=== PATIENT | female | born 2000 | race Caucasian/White ===

== ENCOUNTER 2020-10-19 07:55 | Emergency (ER) | payer OTHER, SELFPAY ==
[2020-10-19 08:33] VITALS: BP 136/69; PULSE 68; RESP 18; TEMP 37.1; O2SAT 99; BMI 38.2
[2020-10-19 08:35] LABS: Glucose Urine UA NEG (NEG); Leukocyte Esterase Urine 3+ (NEG); Nitrite Urine NEG (NEG); PH 7.5 (5.0-8.0); UACC Culture Trigger YES; Urine Blood NEG (NEG); Urine Ketones NEG (NEG); Urine Protein NEG (NEG-TRACE)
[2020-10-19 08:37] LABS: Appearance Urine HAZY; Color Urine YELLOW; UPreg QC Valid YES; Urine Pregnancy NEGATIVE (NEGATIVE)
[2020-10-19 08:44] LABS: RBC Urine 0-2 /HPF (0); Squamous Epithelial Cell Urine 2+ /LPF
--- NOTE | 2020-10-19 09:11 | ED_ITS ---
HPI - Female Genitourinary General Chief complaint: Urogenital-Female Stated complaint: ques uti Source: patient Mode of arrival: ambulatory Limitations: no limitations History of Present Illness HPI Narrative: Patient presents to ED for dysuria, vaginal discharge, and vaginal itching. Patient denies any abdominal pain, fever, chills, or flank pain. Related Data Previous Rx's Medication Instructions Recorded cephalexin 500 mg PO QID #28 cap 10/19/20 doxycycline hyclate 100 mg PO BID #14 cap 10/19/20 metronidazole 500 mg PO Q12H #14 tab 10/19/20 Allergies Allergy/AdvReac Type Severity Reaction Status Date / Time No Known Allergies Allergy Unverified 02/16/20 16:41 [No Known Allergies*] Review of Systems Review of Systems: Yes all other systems are reviewed and are negative Constitutional: Constitutional: Reports as per HPI and Reports no additional constitutional complaints Eyes: Eyes: Reports as per HPI and Reports no additional eye complaints ENT: Reports system reviewed and no additional complaints, except as documented and Reports as per HPI Cardiovascular: Cardiovascular: Reports as per HPI and Reports no additional cardiovascular complaints Respiratory: Respiratory: Reports as per HPI and Reports no additional respiratory complaints Gastrointestinal: Gastrointestinal: Reports as per HPI and Reports no additional gastrointestinal complaints Genitourinary: Genitourinary: Reports no additional female genitourinary complaints, Reports as per HPI, Reports dysuria, Denies flank pain and Reports vaginal discharge Musculoskeletal: Musculoskeletal: Reports no additional musculoskeletal complaints and Reports as per HPI Neurologic: Reports system reviewed and no additional complaints, except as documented and Reports as per HPI Psychiatric: Psychiatric: Reports no additional psychiatric complaints and Reports as per HPI [facility] Social History Social History Advance Directives: Yes Advance Directives Information Provided: No Advance Directives on File: No Patient : No Physical Exam Vital Signs: Vital Signs: Last Vital Signs Temp 98.8 F 10/19/20 08:33 Pulse 68 10/19/20 08:33 Resp 18 10/19/20 08:33 BP 136/69 10/19/20 08:33 Pulse Ox 99 10/19/20 08:33 Body Mass Index 38.2 Const: General: cooperative, healthy appearing, comfortable, no acute distress, well developed, alert and awake Orientation/consciousness: patient oriented x3 HENMT: Head: Yes normal to inspection, Yes No palpable skull fracture present, Yes normocephalic and Yes atraumatic Eyes: General: appearance normal, both eyes and all related structures Neck: Neck: Yes normal visual inspection, Yes full ROM, Yes no lymphadenopathy, Yes no meningeal signs, Yes trachea midline, Yes supple and No tender Chest: Chest palpation & inspection: normal inspection of the chest and normal palpation of entire chest wall Resp: Effort & Inspection: normal respiratory effort and able to speak in complete sentences Auscultation: clear to auscultation bilaterally Cardio: Jugular venous distension: no JVD Heart sounds: S1 normal heart sound present and S2 normal heart sound present GI: Inspection: Yes normal to inspection and No abdominal wall ecchymosis Palpation (GI): Soft to palpation, not firm, nontender, no guarding and not rigid : General: No CVA tenderness and Yes no CVA tenderness External Female Exam: normal external appearance and normal appearance of the urethra Speculum Exam - Vagina: abnormal vaginal discharge (White frothy cheesy discharge) white and frothy Back/Spine/Pelvis: Back: no CVA tenderness, No CVA tenderness and No back tenderness Skin: General skin exam: no rashes or lesions noted and elasticity normal Neuro: General: patient oriented x3, no meningeal signs and CN's II-XI intact bilaterally Cranial nerves: Yes CN's II-XII intact bilaterally Extrem: General: Yes normal to inspection and Yes full ROM Psych: Appearance: grossly normal, well kempt and not disheveled Course Course Course Narrative: UA shows UTI. Will do pelvic exam with female tube test technician developed below. Reevaluation(s) Reevaluation #1: Patient will be discharged with Keflex, Flagyl, doxycycline. Patient agree with empiric treatment for STI. Patient given 1 dose for Diflucan in case he sees. MDM - Female Genitourinary MDM Narrative Medical decision making narrative: Vaginitis Lab Data Labs: Lab Results 10/19/20 10/19/20 10/19/20 Range/Units 08:19 08:19 08:19 Urine Color YELLOW Urine Appearance HAZY Urine pH 7.5 (5.0-8.0) Ur Specific [place] 1.020 (1.005-1.025) Urine Protein NEG (NEG-TRACE) MG/DL Urine Glucose (UA) NEG (NEG) MG/DL Urine Ketones NEG (NEG) MG/DL Urine Blood NEG (NEG) Urine Nitrite NEG (NEG) Ur Leukocyte Esterase 3+ H (NEG) Urine RBC 0-2 (0) /HPF Urine WBC 10-14 H (0-4) /HPF Ur Squamous Epith Cells 2+ /LPF Urine Bacteria NONE /LPF Urine Test NEGATIVE (NEGATIVE) Chlam trachomat DNA PCR NOT DETECTED (Not Detect.) N.gonorrhoeae DNA (PCR) NOT DETECTED (Not Detect.) Discharge Plan Discharge Clinical Impression: Urinary tract infection, Vaginitis Patient Disposition: Home, Self-Care Instructions: Bacterial Vaginosis (ED), Urinary Tract Infection in Women (ED) Additional Instructions: Return to the ED for any abdominal pain, flank pain, fever, chills, nausea, vomiting, or any other concerning symptoms. You were given Diflucan for possible yeast infection. Will be discharged with Keflex antibiotics and metronidazole for vaginitis. Please follow-up with PCP Prescriptions: New cephalexin 500 mg capsule 500 mg PO QID Qty: 28 RF: 0 metronidazole 500 mg tablet 500 mg PO Q12H Qty: 14 RF: 0 doxycycline hyclate 100 mg capsule 100 mg PO BID Qty: 14 RF: 0 Stand Alone Forms: Work/School Release Interventions: ED Discharge Assessment Last Done: 10/19/20 10:49 Discharge Date/Time: 10/19/20 10:49 Print Language: Polish
--- NOTE | 2020-10-19 10:02 | PC.NURSE ---
ASSISTED FLOWER SAEED WITH PELVIC EXAM. BV AND TRICH SWABS SENT TO LAB.
[2020-10-19] MEDS: cefTRIAXone sodium 500 MG, Lidocaine HCl 1 % MPF 1 ML IM (10:18)
[2020-10-19] MEDS: Fluconazole 150 MG TABLET PO (10:18)
[2020-10-19 13:08] LABS: CT PCR NOT DETECTED (Not Detect.); NG PCR NOT DETECTED (Not Detect.)
[2020-10-20 12:33] LABS: BV Int Neg Control Negative (Negative); BV Int Pos Control Positive (Positive)
== END 2020-10-19 10:49 | disposition home or self-care (01) ==
PROVIDERS: Physician Assistant; Emergency Provider Internal Medicine
DX: N39.0 Urinary tract infection, site not specified (principal); N76.0 Acute vaginitis; Z79.899 Other long term (current) drug therapy
CPT/HCPCS: 81001; 81003; 81025; 87086; 87480; 87491; 87510; 87591; 87660; 96372; 99283; J0696

== ENCOUNTER 2020-12-05 10:08 | Emergency (ER) | payer OTHER, SELFPAY ==
--- NOTE | ~2020-12-05 | US_ITS ---
EXAMINATION: US ABDOMEN LIMITED CLINICAL INFORMATION: Right upper quadrant pain. COMPARISON: None TECHNIQUE: Real-time imaging of the right upper quadrant abdominal viscera. FINDINGS: PANCREAS: Not well visualized due to bowel gas LIVER: Normal. The liver is normal in size. The liver contour is normal. Parenchymal echogenicity is normal. No focal hepatic lesion. There is no intrahepatic biliary duct dilatation seen. GALLBLADDER: Normal. The gallbladder is physiologically distended without evidence of stones, sludge, polyps, wall thickening or pericholecystic fluid. COMMON BILE DUCT: Normal in caliber measuring 0.3 cm in diameter. RIGHT KIDNEY: Normal. No hydronephrosis. No renal calculi or focal parenchymal lesions. The kidney measures 11.5 cm in maximum dimension. FREE FLUID: None. US/US abdomen limited IMPRESSION: Limited visualization of the pancreas otherwise unremarkable exam.
[2020-12-05 10:12] VITALS: BP 111/68; PULSE 67; RESP 19; TEMP 35.6; O2SAT 99; BMI 39.6
[2020-12-05 10:35] VITALS: BP 101/48; PULSE 79; RESP 17; O2SAT 98
--- NOTE | 2020-12-05 10:49 | ED_ITS ---
HPI - General Adult General Chief complaint: General Medical Stated complaint: abd pain Time Seen by Provider: 12/05/20 10:26 Source: patient Mode of arrival: ambulatory Limitations: no limitations History of Present Illness HPI narrative: lower abdominal pain for one week, no dysuria, LMP 7/3 normal, no diarrhea, nausea no vomiting, pain is worse with eating Onset (ago): week(s) Location: abdomen Radiation: non-radiation Quality: burning and other (cramping) Pain Consistency: intermittent Exacerbating factors: eating Related Data Previous Rx's Medication Instructions Recorded cephalexin 500 mg PO QID #28 cap 10/19/20 doxycycline hyclate 100 mg PO BID #14 cap 10/19/20 metronidazole 500 mg PO Q12H #14 tab 10/19/20 pantoprazole [Protonix] 40 mg PO DAILY #20 tab 12/05/20 Allergies Allergy/AdvReac Type Severity Reaction Status Date / Time No Known Allergies Allergy Unverified 02/16/20 16:41 [No Known Allergies*] Review of Systems Constitutional: Constitutional: Reports no additional constitutional complaints Eyes: Eyes: Reports no additional eye complaints ENT: Denies dizziness Cardiovascular: Cardiovascular: Reports no additional cardiovascular complaints Respiratory: Respiratory: Reports as per HPI Gastrointestinal: Gastrointestinal: Reports no additional gastrointestinal complaints Genitourinary: Genitourinary: Reports no additional female genitourinary complaints Musculoskeletal: Musculoskeletal: Reports no additional musculoskeletal complaints Integumentary/Breasts: Skin/Breast: Denies rash Neurologic: Reports system reviewed and no additional complaints, except as documented, Denies dizziness and Denies Sensory deficit (Neuro) Psychiatric: Psychiatric: Denies anxiety [facility] Past Medical History Medical History Asthma Social History Social History Alcohol intake: never Patient Tobacco Use Status: Never used Tobacco Use of substances other than those prescribed or required for medical reasons: No Advance Directives: Yes Advance Directives Information Provided: No Advance Directives on File: No Patient : No Physical Exam Vital Signs: Vital Signs: Last Vital Signs Temp 96.0 F L 12/05/20 10:12 Pulse 60 12/05/20 12:25 Resp 14 12/05/20 12:25 BP 96/57 L 12/05/20 12:25 Pulse Ox 100 12/05/20 12:25 Body Mass Index 39.6 Const: General: healthy appearing Nutritional Appearance: obese Orientation/consciousness: oriented to person and patient oriented x3 Limitations: no limitations HENMT: Head: Yes normal to inspection Ears: external ears normal General nose exam: Normal external nose present Mouth: Normal oral and palatal mucosa present and oropharynx normal Throat: Yes posterior oropharynx normal Eyes: General: appearance normal, both eyes and all related structures Neck: Other: supple Neck: Yes normal visual inspection Chest: Chest palpation & inspection: normal inspection of the chest Resp: Auscultation: clear to auscultation bilaterally Cardio: Jugular venous distension: no JVD Rate: regular rate Rhythm: regular rhythm Heart sounds: S1 normal heart sound present and S2 normal heart sound present GI: Other: right upper quadrant pain Inspection: Yes normal to inspection Palpation (GI): Soft to palpation and No hepatosplenomegaly present Auscultation: normal bowel sounds : General: Yes no CVA tenderness Back/Spine/Pelvis: Back: no CVA tenderness Skin: General skin exam: no rashes or lesions noted Neuro: General: oriented to person and patient oriented x3 Cranial nerves: Yes CN's II-XII intact bilaterally Motor exam (neuro): 5/5 motor strength present throughout Sensory Exam: No Sensory deficit (Neuro) Extrem: General: Yes normal to inspection Psych: Appearance: grossly normal Course Reevaluation(s) Reevaluation #1: patient resting comfortably US negative, labs normal will dc on protonix for gastritis Time: 12:58 Medical Decision Making Lab Data Result diagrams: 12/05/20 11:06 12/05/20 11:06 Labs: Lab Results 12/05/20 12/05/20 12/05/20 Range/Units 11:06 11:06 12:25 WBC 5.0 (4.8-10.8) X10*3/uL RBC 4.05 L (4.20-5.50) X10*6/uL Hgb 13.0 (12.0-16.0) g/dl Hct 38.0 (37-47) % MCV 93.8 (80-98) fL MCH 32.1 (27.0-33.0) pg MCHC 34.2 (31.0-35.0) g/dl RDW 11.6 (11.0-16.0) % Plt Count 235 (160-400) X10*3/uL MPV 9.6 (9.4-12.3) fL Immature Gran % (Auto) 0.0 (0.0-0.4) % Neut % (Auto) 40.9 L (45-73) % Lymph % (Auto) 51.9 H (20-40) % Alfalfa % (Auto) 5.2 (2-11) % Eos % (Auto) 1.6 (0-4) % Baso % (Auto) 0.4 (0-2) % Lymph # (Auto) 2.6 (1.2-4.9) X10*3/uL [place] # (Auto) 0.3 (0.1-1.2) X10*3/uL Eos # (Auto) 0.1 (0.0-0.4) X10*3/uL Baso # (Auto) 0.0 (0.0-0.2) X10*3/uL Abs Immat Gran (auto) 0.00 (0.00-0.03) X10*3/uL Absolute Neuts (auto) 2.0 (2.0-8.3) X10*3/uL Absolute Nucleated RBC 0.000 (0.0-0.012) X10*3/uL Nucleated RBC % (auto) 0.0 (0.0-0.2) /100WBC Sodium 139 (135-145) mmol/L Potassium 4.4 (3.3-5.1) mmol/L Chloride 106 (96-108) mmol/L Carbon Dioxide 24 (22-29) mmol/L Anion Gap 13 (12-20) BUN 9 (9-16) mg/dL Creatinine 0.69 (0.5-1.4) mg/dL Estim Creat Clear Calc 129.5 Estimated GFR > 60 Random Glucose 80 (60-115) mg/dL Calcium 8.9 (8.4-10.2) mg/dL Total Bilirubin 0.5 (0.0-1.0) mg/dL Direct Bilirubin 0.2 (0.0-0.5) mg/dL AST 24 (5-31) U/L ALT 25 (0-31) U/L Alkaline Phosphatase 61 (39-117) U/L Total Protein 7.3 (6.5-8.0) g/dL Albumin 3.9 (3.5-5.0) g/dL Lipase 21 (8-78) U/L Urine Color YELLOW Urine Appearance HAZY Urine pH 7.5 (5.0-8.0) Ur Specific [place] 1.015 (1.005-1.025) Urine Protein NEG (NEG-TRACE) MG/DL Urine Glucose (UA) NEG (NEG) MG/DL Urine Ketones NEG (NEG) MG/DL Urine Blood NEG (NEG) Urine Nitrite NEG (NEG) Ur Leukocyte Esterase NEG (NEG) Urine Test (NEGATIVE) 12/05/20 Range/Units 12:25 WBC (4.8-10.8) X10*3/uL RBC (4.20-5.50) X10*6/uL Hgb (12.0-16.0) g/dl Hct (37-47) % MCV (80-98) fL MCH (27.0-33.0) pg MCHC (31.0-35.0) g/dl RDW (11.0-16.0) % Plt Count (160-400) X10*3/uL MPV (9.4-12.3) fL Immature Gran % (Auto) (0.0-0.4) % Neut % (Auto) (45-73) % Lymph % (Auto) (20-40) % [place]alfa % (Auto) (2-11) % Eos % (Auto) (0-4) % Baso % (Auto) (0-2) % Lymph # (Auto) (1.2-4.9) X10*3/uL [place] # (Auto) (0.1-1.2) X10*3/uL Eos # (Auto) (0.0-0.4) X10*3/uL Baso # (Auto) (0.0-0.2) X10*3/uL Abs Immat Gran (auto) (0.00-0.03) X10*3/uL Absolute Neuts (auto) (2.0-8.3) X10*3/uL Absolute Nucleated RBC (0.0-0.012) X10*3/uL Nucleated RBC % (auto) (0.0-0.2) /100WBC Sodium (135-145) mmol/L Potassium (3.3-5.1) mmol/L Chloride (96-108) mmol/L Carbon Dioxide (22-29) mmol/L Anion Gap (12-20) BUN (9-16) mg/dL Creatinine (0.5-1.4) mg/dL Estim Creat Clear Calc Estimated GFR Random Glucose (60-115) mg/dL Calcium (8.4-10.2) mg/dL Total Bilirubin (0.0-1.0) mg/dL Direct Bilirubin (0.0-0.5) mg/dL AST (5-31) U/L ALT (0-31) U/L Alkaline Phosphatase (39-117) U/L Total Protein (6.5-8.0) g/dL Albumin (3.5-5.0) g/dL Lipase (8-78) U/L Urine Color Urine Appearance Urine pH (5.0-8.0) Ur Specific [place] (1.005-1.025) Urine Protein (NEG-TRACE) MG/DL Urine Glucose (UA) (NEG) MG/DL Urine Ketones (NEG) MG/DL Urine Blood (NEG) Urine Nitrite (NEG) Ur Leukocyte Esterase (NEG) Urine Test NEGATIVE (NEGATIVE) Imaging Data US - abdomen: Radiologist's impression: MPRESSION: Limited visualization of the pancreas otherwise unremarkable exam. Discharge Plan Discharge Clinical Impression: Gastritis Qualifiers: Gastritis type: unspecified gastritis Chronicity: acute Gastritis bleeding: without bleeding Qualified Code(s): K29.00 - Acute gastritis without bleeding Patient Disposition: Home, Self-Care Instructions: Gastritis (ED) Prescriptions: New pantoprazole [Protonix] 40 mg tablet,delayed release (DR/EC) 40 mg PO DAILY Qty: 20 RF: 0 No Action cephalexin 500 mg capsule 500 mg PO QID Qty: 28 RF: 0 metronidazole 500 mg tablet 500 mg PO Q12H Qty: 14 RF: 0 doxycycline hyclate 100 mg capsule 100 mg PO BID Qty: 14 RF: 0 Referrals: Isabel Rodgers MD [Primary Care Provider] - 1 week
[2020-12-05 11:18] LABS: MANUAL DIFF FLAG NO
[2020-12-05 11:44] LABS: Basophils Percent Auto 0.4 % (0-2); Eosinophils Absolute Auto 0.1 X10*3/uL (0.0-0.4); Eosinophils Percent Auto 1.6 % (0-4); Lymphocytes Absolute Auto 2.6 X10*3/uL (1.2-4.9); Lymphocytes Percent Auto 51.9 % (20-40); Mean Corpuscular HGB Conc 34.2 g/dl (31.0-35.0); Mean Corpuscular Hemoglobin 32.1 pg (27.0-33.0); Mean Corpuscular Volume 93.8 fL (80-98); Mean Platelet Volume 9.6 fL (9.4-12.3); Monocytes Absolute Auto 0.3 X10*3/uL (0.1-1.2); Monocytes Percent Auto 5.2 % (2-11); Neutrophils Percent Auto 40.9 % (45-73); Platelet Count 235 X10*3/uL (160-400); Red Blood Count 4.05 X10*6/uL (4.20-5.50); Red Cell Distribution Width 11.6 % (11.0-16.0)
[2020-12-05 11:59] LABS: Alanine Aminotransferase 25 U/L (0-31); Albumin Level 3.9 g/dL (3.5-5.0); Alkaline Phosphatase 61 U/L (39-117); Anion Gap 13 (12-20); Aspartate Amino Transferase 24 U/L (5-31); Bilirubin Direct 0.2 mg/dL (0.0-0.5); Bilirubin Total 0.5 mg/dL (0.0-1.0); Blood Urea Nitrogen 9 mg/dL (9-16); Calcium 8.9 mg/dL (8.4-10.2); Carbon Dioxide 24 mmol/L (22-29); Chloride 106 mmol/L (96-108); Creatinine Clr Calc Pharmacy 129.5; Estimated Glomerular Filt Rate > 60; Glucose Random 80 mg/dL (60-115); Lipase 21 U/L (8-78); Potassium 4.4 mmol/L (3.3-5.1); Sodium 139 mmol/L (135-145); Total Protein 7.3 g/dL (6.5-8.0)
--- NOTE | 2020-12-05 12:15 | PC.NURSE ---
Patient is ambulatory to the bathroom and back without difficulty. Urine specimen obtained and sent to the lab. Pt states stomach is a little better and feels more like acid
[2020-12-05] MEDS: Pantoprazole Sodium 40 MG/10 ML VIAL IVPUSH (12:18)
[2020-12-05 12:25] VITALS: BP 96/57; PULSE 60; RESP 14; O2SAT 100
[2020-12-05 12:53] LABS: Glucose Urine UA NEG (NEG); Leukocyte Esterase Urine NEG (NEG); Nitrite Urine NEG (NEG); PH 7.5 (5.0-8.0); Specific Gravity - Urine 1.015 (1.005-1.025); Urine Blood NEG (NEG); Urine Ketones NEG (NEG); Urine Protein NEG (NEG-TRACE)
[2020-12-05 12:54] LABS: Appearance Urine HAZY; Color Urine YELLOW
[2020-12-05 12:55] LABS: UPreg QC Valid YES; Urine Pregnancy NEGATIVE (NEGATIVE)
== END 2020-12-05 13:20 | disposition home or self-care (01) ==
PROVIDERS: Emergency Provider Emergency Medicine; PCP Internal Medicine
DX: K29.00 Acute gastritis without bleeding (principal)
CPT/HCPCS: 36415; 76705; 80048; 80076; 81003; 81025; 83690; 85025; 96374; 99284

== ENCOUNTER 2020-12-25 01:26 | Emergency (ER) | payer OTHER, SELFPAY ==
--- NOTE | ~2020-12-25 | XR_ITS ---
EXAMINATION: XR CHEST CLINICAL INFORMATION: Chest discomfort COMPARISON: None TECHNIQUE: 2 views of the chest were obtained. FINDINGS: No significant abnormality is noted involving the heart, lungs, mediastinum, bony thorax or soft tissues. XR/XR chest 2V IMPRESSION: Unremarkable examination.
[2020-12-25 01:35] VITALS: BP 108/61; PULSE 62; RESP 18; TEMP 36.4; O2SAT 100; BMI 41.0
--- NOTE | 2020-12-25 03:53 | ECG_ITS ---
Test Reason : CHEST PAIN Blood Pressure : / mmHG Vent. Rate : 061 BPM Atrial Rate : 061 BPM P-R Int : 150 ms QRS Dur : 102 ms QT Int : 408 ms P-R-T Axes : 018 003 026 degrees QTc Int : 410 ms Normal sinus rhythm Normal ECG No previous ECGs available Referred By: Tamiko Herrmann Electronically Signed By:JORGE STEELE
--- NOTE | 2020-12-25 04:07 | ED_ITS ---
HPI - SOB/Dyspnea General Chief Complaint: Dyspnea Stated Complaint: chest tightness, SoB Time Seen by Provider: 12/25/20 03:53 Source: patient Mode of arrival: ambulatory History of Present Illness HPI Narrative: 20-year-old female with history of eczema and asthma as a child presents with complaints of anxiety as well as feeling short of breath and is over throat is closing down with associated chest discomfort but denies any wheezing or attempt to use [id number] Benadryl or Claritin for his symptoms. In addition, patient denies any rashes or having ingested any new foods or medications that may have contributed to her symptoms. Otherwise, patient denies any sore throat, cough, GI symptoms or symptoms. Patient is concerned because her heart rate was 95 and she has never seen at that high. She otherwise denies any family history of early cardiac or any difficulties with her heart to date. Patient was evaluated earlier in the month for similar symptoms and reports she has had both COVID-19 shots. Related Data Previous Rx's Medication Instructions Recorded cephalexin 500 mg PO QID #28 cap 10/19/20 doxycycline hyclate 100 mg PO BID #14 cap 10/19/20 metronidazole 500 mg PO Q12H #14 tab 10/19/20 pantoprazole [Protonix] 40 mg PO DAILY #20 tab 12/05/20 Allergies Allergy/AdvReac Type Severity Reaction Status Date / Time No Known Allergies Allergy Unverified 02/16/20 16:41 [No Known Allergies*] Review of Systems Review of Systems: Pertinent positives and negatives as stated in HPI 10 point review of systems is otherwise negative. [facility] Past Medical History Source: nursing notes reviewed Medical History Asthma Social History Social History Alcohol intake: never Patient Tobacco Use Status: Never used Tobacco Advance Directives: No Advance Directives Information Provided: No Patient : No Physical Exam Vital Signs: Vital Signs: Last Vital Signs Temp 97.6 F 12/25/20 01:35 Pulse 63 12/25/20 05:07 Resp 18 12/25/20 01:35 BP 108/61 12/25/20 01:35 Pulse Ox 100 12/25/20 01:35 Body Mass Index 41.0 VITAL SIGNS: Reviewed. GENERAL: Well developed, well nourished, in no acute distress. HEAD: Normocephalic/atraumatic EYES: PERRLA, EOMI, mild swelling noted at bilateral upper lids EARS: Ext canals without abnormality, TMs non-bulging and non-erythematous NOSE: Nares patent bilateral, but noted congestion posteriorly OROPHARYNX: no oral lesions noted, posterior pharynx clear and non-erythematous without noted tonsillar enlargement/erythema/exudates, no uvular enlargement NECK: Supple, no adenopathy LUNGS: No stridor, Normal breath sounds, no rales/wheeze/rhonchi, no tachypnea, no increased work of breathing. SpO2<100> CARDIOVASCULAR: Regular rate and rhythm without noted murmurs ABDOMEN: Soft, non-tender, non-distended with bowel sounds. SKIN: Inspection of the skin reveals eczema NEUROLOGIC: Alert and oriented x 4. Strength and sensation to light touch were grossly intact x 4. Course Course Course Narrative: 20-year-old female with history and clinical presentation consistent with allergies and allergic rhinitis, possible initial presentation of asthma symptoms although there is no hypoxia/tachypnea/wheezing noted. Review of all on investigations otherwise negative for acute findings and on re- evaluation after patient received Benadryl and albuterol inhaler she reports significant improvement in her symptoms. Suspect that patient may be experiencing recurrence of her childhood asthma that may be secondary to environmental triggers. She was instructed to follow-up with her primary care provider and is otherwise stable for discharge. MDM - SOB/Dyspnea Lab Data Labs: Lab Results 12/25/20 12/25/20 Range/Units 04:20 04:20 Urine Color YELLOW Urine Appearance CLEAR Urine pH 6.0 (5.0-8.0) Ur Specific [place] >= 1.030 H (1.005-1.025) Urine Protein NEG (NEG-TRACE) MG/DL Urine Glucose (UA) NEG (NEG) MG/DL Urine Ketones NEG (NEG) MG/DL Urine Blood NEG (NEG) Urine Nitrite NEG (NEG) Ur Leukocyte Esterase NEG (NEG) Urine Test NEGATIVE (NEGATIVE) ECG Data Attestation: I personally reviewed and interpreted this ECG as follows: Prior ECG tracings: not available for review Interpretation: Normal sinus rhythm, HR -61, no STEMI, OR/QRS/QTC are within normal limits. Discharge Plan Discharge Clinical Impression: Asthma with exacerbation Patient Disposition: Home, Self-Care Instructions: Asthma (ED), Loratadine (By mouth), Fluticasone (Into the nose) Additional Instructions: 1. Recommend starting daily regimen with Flonase and Claritin, these are available [id number], and you have been provided with information sheets regarding these medications. 2. Recommend initiating the albuterol inhaler for shortness of breath, you may administer 2 puffs every 4-6 hours if you feel short of breath. 3. Please follow-up with your primary care provider in the next 1-2 days for re- evaluation further outpatient management. Return to the ER for acute worsening of your symptoms. Prescriptions: No Action cephalexin 500 mg capsule 500 mg PO QID Qty: 28 RF: 0 metronidazole 500 mg tablet 500 mg PO Q12H Qty: 14 RF: 0 doxycycline hyclate 100 mg capsule 100 mg PO BID Qty: 14 RF: 0 pantoprazole [Protonix] 40 mg tablet,delayed release (DR/EC) 40 mg PO DAILY Qty: 20 RF: 0 Referrals: Isabel Rodgers MD [Primary Care Provider] - 2 days (Re-evaluation after patient seen here in the emergency room and presumptively treated for asthma, likely environmentally induced and provided with a ventolin inhaler.)
[2020-12-25] MEDS: diphenhydrAMINE HCL 25 MG TABLET PO (04:10)
[2020-12-25 04:25] LABS: Glucose Urine UA NEG (NEG); Leukocyte Esterase Urine NEG (NEG); Nitrite Urine NEG (NEG); Specific Gravity - Urine >= 1.030 (1.005-1.025); Urine Blood NEG (NEG); Urine Ketones NEG (NEG); Urine Protein NEG (NEG-TRACE)
[2020-12-25 04:27] LABS: Appearance Urine CLEAR; Color Urine YELLOW; UPreg QC Valid YES; Urine Pregnancy NEGATIVE (NEGATIVE)
[2020-12-25] MEDS: Albuterol Sulfate 90 MCG 8 GM INHALER 4 PUFF INHALE (05:05)
[2020-12-25 05:07] VITALS: PULSE 63; O2SAT 95
== END 2020-12-25 06:31 | disposition home or self-care (01) ==
PROVIDERS: Emergency Provider Student in an Organized Health Care Education/Training Program; PCP Internal Medicine
DX: J45.901 Unspecified asthma with (acute) exacerbation (principal); F41.9 Anxiety disorder, unspecified
CPT/HCPCS: 71046; 81003; 81025; 93005; 94640; 99283; 99284; Q0163

== ENCOUNTER 2021-03-02 10:40 | Emergency (ER) | payer OTHER, SELFPAY ==
[2021-03-02 10:58] VITALS: BP 112/74; PULSE 61; RESP 16; TEMP 35.9; O2SAT 99; BMI 43.4
[2021-03-02 11:31] LABS: COVID-19 Test Negative (Negative); IDNOW Serial# 9DD0AD1C
[2021-03-02 11:31] LABS: Strep A Nucleic Acid Negative (Negative)
--- NOTE | 2021-03-02 11:38 | ED.GENADULT ---
HPI - General Adult General Chief complaint: General Medical Stated complaint: SORE THROAT Time Seen by Provider: 03/02/21 11:38 Source: patient Mode of arrival: ambulatory Limitations: no limitations History of Present Illness HPI narrative: 20-year-old female is here today for complaining of sore throat, postnasal drip, retinitis for the last few days. Patient reports that she also had body aches no subjective fever or chills 4 days ago. Two days ago she was tested negative for COVID. Today she reports that she is feeling little better however still has sore throat and postnasal drip. Patient denies headaches, dizziness. Denies any earache, SOB, CP, palpitations. Onset (ago): day(s) Location: mouth Related Data Previous Rx's Medication Instructions Recorded cephalexin 500 mg capsule 500 mg PO QID #28 cap 10/19/20 doxycycline hyclate 100 mg capsule 100 mg PO BID #14 cap 10/19/20 metronidazole 500 mg tablet 500 mg PO Q12H #14 tab 10/19/20 pantoprazole 40 mg tablet,delayed 40 mg PO DAILY #20 tab 12/05/20 release (Protonix) fluticasone propionate 50 1 spray INTRANASAL BID #16 g 03/02/21 mcg/actuation nasal spray,suspension (Flonase Allergy Relief) ibuprofen 600 mg tablet 600 mg PO Q8H PRN #20 tab 03/02/21 loratadine 10 mg tablet 10 mg PO DAILY PRN #20 tab 03/02/21 Allergies Allergy/AdvReac Type Severity Reaction Status Date / Time No Known Allergies Allergy Unverified 02/16/20 16:41 [No Known Allergies*] Review of Systems Review of Systems: Constitutional : No Weight loss, No Fever, No Chills, No Night Sweats, No Fatigue, No Malaise ENT/Mouth : No Hearing loss, No Ear Pain, Nasal Congestion, Sinus Pain, No Hoarseness, sore throat, Rhinorrhea, No Swallowing Difficulty Eyes: No Eye Pain, No Swelling, No Redness, No Foreign Body, No Discharge, No Vision Changes Cardiovascular : No Chest Pain, No SOB, No Dyspnea on Exertion, No Orthopnea, No Edema, No Palpitations Respiratory : No Cough, No Sputum, No Wheezing, No Smoke Exposure, No Dyspnea Gastrointestinal : No Nausea, No Vomiting, No Diarrhea, No Constipation, No abdominal Pain, No Hematochezia, No Melena Genitourinary : no irregular bleeding, No Dysuria, No Urinary Frequency, No Hematuria, No Urinary Incontinence, No Urgency, No Flank Pain, No Urinary Flow Changes, No Hesitancy Musculoskeletal : No joint pain, No Myalgias, No Joint Swelling Skin : No Skin Lesions, No rash Neuro : No Weakness, No Numbness, No Paresthesias, No Loss of Consciousness, No Dizziness, No Headache Yes all other systems are reviewed and are negative PMFSH Past Medical History Medical History Asthma Social History Social History Alcohol intake: never Patient Tobacco Use Status: Never used Tobacco Advance Directives: No Advance Directives Information Provided: No Patient : No Physical Exam Vital Signs: Vital Signs: Last Vital Signs Temp 96.7 F L 03/02/21 10:58 Pulse 61 03/02/21 10:58 Resp 16 03/02/21 10:58 BP 112/74 03/02/21 10:58 Pulse Ox 99 03/02/21 10:58 Body Mass Index 43.4 Const: General: healthy appearing, no acute distress and well developed Nutritional Appearance: well nourished Orientation/consciousness: patient oriented x3 HENMT: Head: Yes normal to inspection, Yes normocephalic and Yes atraumatic Ears: external ears normal and TM's normal bilaterally General nose exam: Normal nares present and No nasal polyps present Face and sinus: Yes normal facial exam and Yes sinus tenderness (Frontal sinuses tender) Mouth: Normal oral and palatal mucosa present Throat: Yes uvula midline, Yes abnormal tonsil (Redness) and Yes postnasal drainage Eyes: General: appearance normal, both eyes and all related structures Neck: Neck: Yes normal visual inspection, Yes full ROM and Yes trachea midline Thyroid: Thyroid normal Resp: Auscultation: clear to auscultation bilaterally Cardio: Rate: regular rate Rhythm: regular rhythm GI: Inspection: Yes normal to inspection and No distended Palpation (GI): No hepatosplenomegaly present Auscultation: normal bowel sounds Skin: General skin exam: elasticity normal, turgor normal and dry skin Neuro: General: patient oriented x3 Course Course Course Narrative: 20-year-old female is here today with complaints of flu-like symptoms. Patient reports that it started 4 days ago with body aches rhinitis, headache, postnasal drip. Today patient reports that she is feeling little better, however still has postnasal drip and sore throat. Patient had negative COVID test 2 days ago. Patient has no respiratory symptoms. Upon exam post nasal drip red posterior pharynx. Patient tried Claritin with some effect at home for the last 2 days. Will check COVID test today strep if negative will send her home with gluten Flonase and Tylenol. Reevaluation(s) Reevaluation #1: Both COVID test and strep negative. Will send patient home with Flonase and Claritin. Ibuprofen for comfort. She will follow-up with her PCP in 2-3 days. Patient was encouraged to return to emergency department if her symptoms will get worse. Medical Decision Making Lab Data Labs: Lab Results 03/02/21 03/02/21 Range/Units 11:03 11:04 COVID-19 (DACIA) Negative (Negative) COVID-19 Clin Com See Note S. pyogenes GrpA NICOLE Negative (Negative) Discharge Plan Discharge Clinical Impression: Viral illness Patient Disposition: Home, Self-Care Instructions: Viral Syndrome (ED) Additional Instructions: You were seen here today for upper respiratory symptoms. Your symptoms most likely are viral. Your COVID test and your strep test were both negative. Please make sure you take antihistamine to help you with those symptoms you may also take ibuprofen. I will send you script for Flonase you can take it twice a day 1 spray in each nostril for 7 days and then once a day. Please follow-up with your PCP in 2-3 days. You may return to emergency department if your symptoms will get worse or if you experience any additional concerning symptoms. Prescriptions: New ibuprofen 600 mg tablet 600 mg PO Q8H PRN (Reason: pain) Qty: 20 RF: 0 fluticasone propionate [Flonase Allergy Relief] 50 mcg/actuation spray,suspension 1 spray intranasal BID Qty: 16 RF: 0 loratadine 10 mg tablet 10 mg PO DAILY PRN (Reason: allergy symptoms) Qty: 20 RF: 0 No Action cephalexin 500 mg capsule 500 mg PO QID Qty: 28 RF: 0 metronidazole 500 mg tablet 500 mg PO Q12H Qty: 14 RF: 0 doxycycline hyclate 100 mg capsule 100 mg PO BID Qty: 14 RF: 0 pantoprazole [Protonix] 40 mg tablet,delayed release (DR/EC) 40 mg PO DAILY Qty: 20 RF: 0 Referrals: Isabel Rodgers MD [Primary Care Provider] - 2 days Stand Alone Forms: Work/School Release Interventions: ED Discharge Assessment Last Done: 03/02/21 11:58 Discharge Date/Time: 03/02/21 11:58
== END 2021-03-02 11:58 | disposition home or self-care (01) ==
PROVIDERS: Emergency Provider Emergency Medicine; PCP Internal Medicine
DX: B34.9 Viral infection, unspecified (principal); M79.10 Myalgia, unspecified site; Z20.822 Contact with and (suspected) exposure to COVID-19; Z79.899 Other long term (current) drug therapy
CPT/HCPCS: 36415; 87635; 87651; 99283

== ENCOUNTER 2022-12-18 12:05 | Outpatient (REF) | payer OTHER, SELFPAY ==
[2022-12-18 15:54] LABS: HCG Quantitative 48 mIU/mL
== END 2022-12-18 12:06 | disposition home or self-care (01) ==
LOC: HO.LAB 12:05
PROVIDERS: PCP Physician Assistant; Visit Provider Internal Medicine
DX: N92.6 Irregular menstruation, unspecified (principal)
CPT/HCPCS: 36415; 84702

== ENCOUNTER 2022-12-31 07:57 | Emergency (ER) | payer OTHER, SELFPAY ==
--- NOTE | ~2022-12-31 | US_ITS ---
EXAMINATION: US OBSTETRICAL ULTRASOUND CLINICAL INFORMATION: Pelvic cramping and nausea. 5-6 week gestation COMPARISON: None available. LMP: 11/16/2022. Gestational age by maternal dates is 6 weeks 3 days. Estimated date of delivery by maternal dates is 08/23/2023. TECHNIQUE: Endovaginal sonography FINDINGS: Small gestational sac observed. 0.87 cm mean sac diameter correlates with a 5 week 4 day gestation. No pole or yolk sac or cardiac flicker observed. MATERNAL ADNEXA: The right maternal ovary measures 2.4 x 2.9 x 2.4 cm. Corpus luteal cyst at 16 x 20 x 17 mm. The left maternal ovary measures 3.3 x 1.7 x 2.1 cm. There is no significant maternal adnexal mass. No maternal pelvic ascites. US/US OB pelvic and transvaginal IMPRESSION: No live IUP seen at this time. Mean sac diameter correlates with a 5 week 4 day gestation. Continued follow-up with ultrasound and serial quantitative beta hCG is advised.
[2022-12-31 08:00] VITALS: PULSE 92; RESP 16; TEMP 37.1; O2SAT 99; BMI 44.9
--- NOTE | 2022-12-31 08:05 | ED_ITS ---
HPI - General Chief complaint: Abdominal Pain Stated complaint: , having pain Time Seen by Provider: 12/31/22 08:04 Source: patient, RN notes reviewed and old records reviewed Mode of arrival: ambulatory History of Present Illness HPI Narrative: 22-year-old female at about 5-6 weeks gestation (HC on 12/18/22) p resenting to the ED complaining lower abdominal cramping and nausea since last night. LMP 11/19. Denies fever, chills, vomiting, diarrhea, vaginal bleeding, vaginal discharge, dysuria/hematuria. Patient following at [facility] has not had 1st appointment yet MD Complaint: abdominal pain Related Data Previous Rx's Medication Instructions Recorded cephalexin 500 mg capsule 500 mg PO QID pain #28 caps 10/19/20 doxycycline hyclate 100 mg capsule 100 mg PO BID #14 caps 10/19/20 metronidazole 500 mg tablet 500 mg PO Q12H UTI #14 tabs 10/19/20 pantoprazole 40 mg tablet,delayed 40 mg PO DAILY #20 tabs 12/05/20 release (Protonix) fluticasone propionate 50 1 spray intranasal BID #16 grams 03/02/21 mcg/actuation nasal spray,suspension (Flonase Allergy Relief) ibuprofen 600 mg tablet 600 mg PO Q8H PRN pain #20 tabs 03/02/21 loratadine 10 mg tablet 10 mg PO DAILY PRN allergy 03/02/21 symptoms #20 tabs Allergies Allergy/AdvReac Type Severity Reaction Status Date / Time No Known Allergies Allergy Unverified 02/16/20 16:41 [No Known Allergies*] Review of Systems Review of Systems: Constitutional: No Fever, No Chills ENT/Mouth: No Ear Pain, No Nasal Congestion, No sore throat, No Rhinorrhea, No Swallowing Difficulty Cardiovascular: No Chest Pain, No SOB Respiratory: No Cough Gastrointestinal: + Nausea, No Vomiting, No Diarrhea, No Constipation, + Abdominal pain Genitourinary: No vaginal bleeding, No vaginal discharge, No Dysuria, No Urinary Frequency, No Hematuria, No Flank Pain Musculoskeletal: No joint pain, No Myalgias, No Joint Swelling Skin: No Skin Lesions, No rash Neuro: No Weakness Yes all other systems are reviewed and are negative Constitutional: Constitutional: Reports as per [facility] Past Medical History Attestation statement: The following information was validated with the patient. Source: old records reviewed Medical History Asthma Social History Social History Alcohol intake: former Patient Tobacco Use Status: Never used Tobacco Smoked in Last 30 Days: No Use of substances other than those prescribed or required for medical reasons: No Advance Directives: No Patient : Yes Physical Exam Vital Signs: Vital Signs: Last Vital Signs Temp 98.8 F 12/31/22 08:00 Pulse 92 12/31/22 08:00 Resp 16 12/31/22 08:00 BP 126/73 12/31/22 08:14 Pulse Ox 97 12/31/22 08:12 O2 Del Method Room Air 12/31/22 08:12 BMI result Body Mass Index 44.9 Const: General: cooperative, healthy appearing and no acute distress Orientation/consciousness: patient oriented x3 Limitations: no limitations HEENT: Head: Yes normal to inspection and Yes atraumatic Ears: hearing grossly normal bilaterally General nose exam: Normal external nose present Face and sinus: Yes normal facial exam Eyes: General: appearance normal, both eyes and all related structures EOM: EOMs intact bilaterally Neck: Neck: Yes normal visual inspection and Yes no meningeal signs Resp: Effort & Inspection: normal respiratory effort and no respiratory distress Cardio: Rate: regular rate Heart sounds: S1 normal heart sound present and S2 normal heart sound present GI: Inspection: Yes normal to inspection Palpation (GI): Soft to palpation, Tenderness to palpation present (GI) suprapubicly; with no rebound tenderness, no guarding and not rigid : Other: deferred General: Yes no CVA tenderness Back/Spine/Pelvis: Back: no CVA tenderness Skin: Rashes: no rashes Wounds: no wounds Neuro: General: patient oriented x3, tone normal and no meningeal signs Gait exam (Neuro): Normal gait present Extrem: General: Yes normal to inspection Course Course Course Narrative: - hCG 6291. Labs otherwise reassuring. UA negative US OB pelvic and transvaginal IMPRESSION: No live IUP seen at this time. Mean sac diameter correlates with a 5 week 4 day gestation. Continued follow-up with ultrasound and serial quantitative beta hCG is advised. > results discussed with patient including threatened precautions. Recommended repeat hCG in 48 hours, patient provided with lab slip. Recommended repeat ultrasound in 1 week. If patient develops any increase or unremitting pain, vaginal bleeding or discharge needs to return to the ED immediately. Should call her OBGYN Results discussed with patient including worrisome signs and symptoms and strict return precautions, and when to return to the emergency department. They verbalized understanding and feel safe for discharge at this time. Medical Decision Making Medical Decision Making MDM Narrative: 22-year-old female at about 5-6 weeks gestation (HC on 12/18/22) presenting to the ED complaining lower abdominal cramping and nausea since last night. on exam vital signs stable, NAD, nontoxic appearing, abdomen soft s uprapubic tenderness, no rebound or guarding. exam deferred. Concern for early vs threatened vs ectopic vs ?Torsion/cyst. Lower suspicion for STI/ UTI at this time. plan: Labs, UA, Ob ultrasound Please refer to course for remaining clinical decision making, interpretation of labs/imaging results, and discussions with consultants and/or family members. Differential Diagnosis Differential Diagnoses: The differential diagnosis associated with the presentation includes As above Admission/Observation Consideration of admission/observation: Escalation of care including admission/observation considered Lab Data [facility] [place] Lab Attestation statement: I reviewed the patient's lab results. 12/31/22 08:32 12/31/22 08:32 Labs: Lab Results 12/31/22 12/31/22 12/31/22 Range/Units 08:21 08:32 08:32 WBC 4.9 (4.8-10.8) X10*3/uL RBC 4.00 L (4.20-5.50) X10*6/uL Hgb 12.6 (12.0-16.0) g/dl Hct 37.7 (37.0-47.0) % MCV 94.3 (80.0-98.0) fL MCH 31.5 (27.0-33.0) pg MCHC 33.4 (31.0-35.0) g/dl RDW 12.5 (11.0-16.0) % Plt Count 237 (160-400) X10*3/uL MPV 9.3 L (9.4-12.3) fL Immature Gran % (Auto) 0.2 (0.0-0.4) % Neut % (Auto) 46.2 (45-73) % Lymph % (Auto) 45.5 H (20-40) % [place] % (Auto) 6.1 (2-11) % Eos % (Auto) 1.8 (0-4) % Baso % (Auto) 0.2 (0-2) % Lymph # (Auto) 2.2 (1.2-4.9) X10*3/uL [place] # (Auto) 0.3 (0.1-1.2) X10*3/uL Eos # (Auto) 0.1 (0.0-0.4) X10*3/uL Baso # (Auto) 0.0 (0.0-0.2) X10*3/uL Abs Immat Gran (auto) 0.01 (0.00-0.03) X10*3/uL Absolute Neuts (auto) 2.3 (2.0-8.3) x10*3/uL Absolute Nucleated RBC 0.000 (0.0-0.012) X10*3/uL Nucleated RBC % (auto) 0.0 (0.0-0.2) /100WBC Sodium 141 (135-145) mmol/L Potassium 4.2 (3.3-5.1) mmol/L Chloride 108 (96-108) mmol/L Carbon Dioxide 22 (22-29) mmol/L Anion Gap 15 (12-20) BUN 5 L (9-16) mg/dL Creatinine 0.64 (0.5-1.4) mg/dL Estim Creat Clear Calc 147.6 Estimated GFR > 60 Random Glucose 114 (60-115) mg/dL Calcium 8.8 (8.4-10.2) mg/dL Total Bilirubin 0.5 (0.0-1.0) mg/dL Direct Bilirubin 0.2 (0.0-0.5) mg/dL AST 30 (5-31) U/L ALT 43 H (0-31) U/L Alkaline Phosphatase 48 (39-117) U/L Total Protein 7.0 (6.5-8.0) g/dL Albumin 3.7 (3.5-5.0) g/dL Beta HCG, Quant 6291 mIU/mL Urine Color Dark Yellow Urine Appearance Cloudy Urine pH 7.0 (5.0-9.0) Ur Specific [place] 1.025 (1.005-1.025) Urine Protein Trace (Neg-Trace) mg/dL Urine Glucose (UA) Negative (Negative) mg/dL Urine Ketones 15 (Negative) mg/dL Urine Blood Negative (Negative) Urine Nitrite Negative (Negative) Ur Leukocyte Esterase Trace H (Negative) Urine RBC 0-2 (0-2) /HPF Urine WBC 0-5 (0-5) /HPF Ur Squamous Epith Cells >20 (0-2) /HPF Urine Bacteria 2+ (None Seen) Hyaline Casts 3-5 (0-2) /LPF Blood Type 12/31/22 Range/Units 08:32 WBC (4.8-10.8) X10*3/uL RBC (4.20-5.50) X10*6/uL Hgb (12.0-16.0) g/dl Hct (37.0-47.0) % MCV (80.0-98.0) fL MCH (27.0-33.0) pg MCHC (31.0-35.0) g/dl RDW (11.0-16.0) % Plt Count (160-400) X10*3/uL MPV (9.4-12.3) fL Immature Gran % (Auto) (0.0-0.4) % Neut % (Auto) (45-73) % Lymph % (Auto) (20-40) % [place] % (Auto) (2-11) % Eos % (Auto) (0-4) % Baso % (Auto) (0-2) % Lymph # (Auto) (1.2-4.9) X10*3/uL [place] # (Auto) (0.1-1.2) X10*3/uL Eos # (Auto) (0.0-0.4) X10*3/uL Baso # (Auto) (0.0-0.2) X10*3/uL Abs Immat Gran (auto) (0.00-0.03) X10*3/uL Absolute Neuts (auto) (2.0-8.3) x10*3/uL Absolute Nucleated RBC (0.0-0.012) X10*3/uL Nucleated RBC % (auto) (0.0-0.2) /100WBC Sodium (135-145) mmol/L Potassium (3.3-5.1) mmol/L Chloride (96-108) mmol/L Carbon Dioxide (22-29) mmol/L Anion Gap (12-20) BUN (9-16) mg/dL Creatinine (0.5-1.4) mg/dL Estim Creat Clear Calc Estimated GFR Random Glucose (60-115) mg/dL Calcium (8.4-10.2) mg/dL Total Bilirubin (0.0-1.0) mg/dL Direct Bilirubin (0.0-0.5) mg/dL AST (5-31) U/L ALT (0-31) U/L Alkaline Phosphatase (39-117) U/L Total Protein (6.5-8.0) g/dL Albumin (3.5-5.0) g/dL Beta HCG, Quant mIU/mL Urine Color Urine Appearance Urine pH (5.0-9.0) Ur Specific [place] (1.005-1.025) Urine Protein (Neg-Trace) mg/dL Urine Glucose (UA) (Negative) mg/dL Urine Ketones (Negative) mg/dL Urine Blood (Negative) Urine Nitrite (Negative) Ur Leukocyte Esterase (Negative) Urine RBC (0-2) /HPF Urine WBC (0-5) /HPF Ur Squamous Epith Cells (0-2) /HPF Urine Bacteria (None Seen) Hyaline Casts (0-2) /LPF Blood Type A Positive Radiology Impression Discussion of test interpretation with radiology: I have reviewed the radiologist's reading. External Record Review External record reviewed: Inpatient record, Office record, Outpatient record, Prior outpatient labs, Prior outpatient radiology, Primary care record and Outside ED record Tests considered The following testing was considered but not selected: As above Prescription Management I considered prescription management with: Pain Medication Discharge Plan Discharge Clinical Impression: Abdominal pain during in first trimester Patient Disposition: Home, Self-Care Instructions: Abdominal Pain in (ED) Additional Instructions: your hCG was 6291 ultrasound does not show an intrauterine at this time however mean sac correlates with 5 weeks and 4 days, this could be a normal finding and too early to see anything on ultrasound, this also could be signs of an early miscarriage. It is very important for you to follow-up for repeat blood work in 48 hours. If pain persists or worsens developed vaginal bleeding or discharge return to the ED immediately please call your OBGYN Prescriptions: No Action cephalexin 500 mg capsule 500 mg PO QID Qty: 28 0RF metronidazole 500 mg tablet 500 mg PO Q12H Qty: 14 0RF doxycycline hyclate 100 mg capsule 100 mg PO BID Qty: 14 0RF pantoprazole [Protonix] 40 mg tablet,delayed release (DR/EC) 40 mg PO DAILY Qty: 20 0RF ibuprofen 600 mg tablet 600 mg PO Q8H PRN (Reason: pain) Qty: 20 0RF fluticasone propionate [Flonase Allergy Relief] 50 mcg/actuation spray,suspension 1 spray intranasal BID Qty: 16 0RF Rx Instructions: administer into each nostril loratadine 10 mg tablet 10 mg PO DAILY PRN (Reason: allergy symptoms) Qty: 20 0RF Referrals: [facility] [place] [facility] [Provider Group] - 2 days Stand Alone Forms: Work/School Release Interventions: ED Discharge Assessment Last Done: 12/31/22 10:26 Discharge Date/Time: 12/31/22 10:26
--- NOTE | 2022-12-31 08:08 | PC.NURSE ---
Alert and oriented, arrived from home with 7/10 lower abdominal pain that she reports feels like period cramps. States pain is constant. Reports last period was november 19, and is about 6-7 weeks . Denies urinary symptoms, heavy lifting, Reports feeling more nauseous today than usual. Denies vomiting, constipation, or diarhea.
[2022-12-31 08:12] VITALS: O2SAT 97
[2022-12-31 08:14] VITALS: BP 126/73
[2022-12-31 08:30] LABS: Appearance Urine Cloudy; Color Urine Dark Yellow; Glucose Urine UA Negative (Negative); Leukocyte Esterase Urine Trace (Negative); Nitrite Urine Negative (Negative); Specific Gravity - Urine 1.025 (1.005-1.025); UMIC TRIGGER UACC YES; Urine Blood Negative (Negative); Urine Ketones 15 mg/dL (Negative); Urine Protein Trace mg/dL (Neg-Trace)
[2022-12-31 08:37] LABS: MANUAL DIFF FLAG NO
[2022-12-31 08:41] LABS: Bacteria Urine 2+ (None Seen); RBC Urine 0-2 /HPF (0-2); Squamous Epithelial Cell Urine >20 /HPF (0-2); WBC Urine 0-5 /HPF (0-5)
[2022-12-31 08:42] LABS: Basophils Percent Auto 0.2 % (0-2); Eosinophils Absolute Auto 0.1 X10*3/uL (0.0-0.4); Eosinophils Percent Auto 1.8 % (0-4); Hematocrit 37.7 % (37.0-47.0); Hemoglobin 12.6 g/dl (12.0-16.0); Imm Gran Abs Auto 0.01 X10*3/uL (0.00-0.03); Imm Gran Pct Auto 0.2 % (0.0-0.4); Lymphocytes Absolute Auto 2.2 X10*3/uL (1.2-4.9); Lymphocytes Percent Auto 45.5 % (20-40); Mean Corpuscular HGB Conc 33.4 g/dl (31.0-35.0); Mean Corpuscular Hemoglobin 31.5 pg (27.0-33.0); Mean Corpuscular Volume 94.3 fL (80.0-98.0); Mean Platelet Volume 9.3 fL (9.4-12.3); Monocytes Absolute Auto 0.3 X10*3/uL (0.1-1.2); Monocytes Percent Auto 6.1 % (2-11); Neutrophils Absolute Auto 2.3 x10*3/uL (2.0-8.3); Neutrophils Percent Auto 46.2 % (45-73); Platelet Count 237 X10*3/uL (160-400); Red Cell Distribution Width 12.5 % (11.0-16.0); White Blood Count 4.9 X10*3/uL (4.8-10.8)
[2022-12-31 09:00] LABS: Alanine Aminotransferase 43 U/L (0-31); Albumin Level 3.7 g/dL (3.5-5.0); Alkaline Phosphatase 48 U/L (39-117); Anion Gap 15 (12-20); Aspartate Amino Transferase 30 U/L (5-31); Bilirubin Direct 0.2 mg/dL (0.0-0.5); Bilirubin Total 0.5 mg/dL (0.0-1.0); Blood Urea Nitrogen 5 mg/dL (9-16); Calcium 8.8 mg/dL (8.4-10.2); Carbon Dioxide 22 mmol/L (22-29); Chloride 108 mmol/L (96-108); Creatinine Clr Calc Pharmacy 147.6; Estimated Glomerular Filt Rate > 60; Glucose Random 114 mg/dL (60-115); Potassium 4.2 mmol/L (3.3-5.1); Sodium 141 mmol/L (135-145)
[2022-12-31 09:01] LABS: HCG Quantitative 6291 mIU/mL
== END 2022-12-31 10:26 | disposition home or self-care (01) ==
PROVIDERS: Physician Assistant; Emergency Provider Emergency Medicine
DX: O26.91 Pregnancy related conditions, unspecified, first trimester (principal); R10.2 Pelvic and perineal pain; Z3A.01 Less than 8 weeks gestation of pregnancy; Z79.899 Other long term (current) drug therapy
CPT/HCPCS: 36415; 76801; 76817; 80048; 80076; 81001; 84702; 85025; 86900; 86901; 99284

== ENCOUNTER 2023-01-07 19:15 | Emergency (ER) | payer OTHER, SELFPAY ==
--- NOTE | ~2023-01-07 | US_ITS ---
EXAMINATION: US OBSTETRICAL ULTRASOUND CLINICAL INFORMATION: 6.5 weeks with crown-rump pubic COMPARISON: 12/31/2022 LMP: 11/16/2022. Gestational age by maternal dates is 7 weeks 3 days. Estimated date of delivery by maternal dates is 08/23/2023. TECHNIQUE: Transabdominal and transvaginal FINDINGS: There is a single intrauterine gestational sac with visible yolk sac, embryo/fetus, and cardiac activity. There is no significant subchorionic hemorrhage or hematoma. HR: 116 beats per minute. The yolk sac identified. CRL (crown rump length): 0.44 cm (6 weeks 1 day +/- 4 days). MARIA DEL ROSARIO (estimated date of delivery): 08/31/2023 +/- 4 days. MATERNAL ADNEXA: The right maternal ovary measures 3.2 x 2.4 x 2.3 cm. There is corpus luteal 1.8 x 1.6 x 1.3 cm cyst. The left maternal ovary measures 3.0 x 1.7 x 1.8 cm. There is no significant maternal adnexal mass. No maternal pelvic ascites. US/US OB pelvic and transvaginal IMPRESSION: 1. Single intrauterine gestation with ultrasound gestational age of 6 weeks 2 days +/- 4 days. 2. Estimated date of delivery is 08/31/2023 +/- 4 days. 3. No maternal adnexal mass or pelvic ascites.
[2023-01-07 19:20] VITALS: BP 122/63; PULSE 98; RESP 16; TEMP 36.8; O2SAT 98; BMI 46.3
--- NOTE | 2023-01-07 20:20 | ED_ITS ---
HPI - Female Genitourinary General Chief complaint: Abdominal Pain Stated complaint: 6 1/2 weeks preg/cramping Time Seen by Provider: 01/07/23 21:42 Source: patient Mode of arrival: ambulatory Limitations: no limitations History of Present Illness HPI Narrative: 22-year-old female G G2, P1, 7 weeks 2 days based on LMP 11/17/2022 who presents emergency department for evaluation of lower abdominal cramping. The patient states she has been experiencing cramping in her lower abdomen for 1 week. She states the cramping sensation is intermittent will be severe for 10- 30 minutes and then resolved. She states she gets this pain several times a week but not every day. She has had associated nausea with no vomiting. She denied vaginal discharge or vaginal bleeding. She denied frequency, urgency or dysuria. The patient was seen here in the emergency department on 12/31/2022 had a quantitative beta-hCG of 6291. Patient's ultrasound did not reveal a live IUP but there was a mean sac diameter which correlated with 5 weeks and 4 days gestation with the recommendation to follow serial HCGs and follow-up ultrasound. Patient states she did see her OBGYN at [facility] and her OBGYN was concerned that she may be having a miscarriage. The patient was concerned about cramping that occurred today so she came to the emergency department for re-evaluation. Related Data Previous Rx's Medication Instructions Recorded cephalexin 500 mg capsule 500 mg PO QID pain #28 caps 10/19/20 doxycycline hyclate 100 mg capsule 100 mg PO BID #14 caps 10/19/20 metronidazole 500 mg tablet 500 mg PO Q12H UTI #14 tabs 10/19/20 pantoprazole 40 mg tablet,delayed 40 mg PO DAILY #20 tabs 12/05/20 release (Protonix) fluticasone propionate 50 1 spray intranasal BID #16 grams 03/02/21 mcg/actuation nasal spray,suspension (Flonase Allergy Relief) ibuprofen 600 mg tablet 600 mg PO Q8H PRN pain #20 tabs 03/02/21 loratadine 10 mg tablet 10 mg PO DAILY PRN allergy 03/02/21 symptoms #20 tabs Allergies Allergy/AdvReac Type Severity Reaction Status Date / Time No Known Allergies Allergy Unverified 02/16/20 16:41 [No Known Allergies*] Review of Systems Review of Systems: Yes all other systems are reviewed and are negative [facility] Past Medical History Attestation statement: The following information was validated with the patient. [facility] Narrative: Past medical history: Asthma. Surgical history: 4 years prior for her 1st . Social history: She denies tobacco, alcohol and drug use. 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 Medical History Asthma Social History Social History Alcohol intake: former Patient Tobacco Use Status: Never used Tobacco Advance Directives: No Advance Directives Information Provided: Yes Physical Exam Vital Signs: Vital Signs: Last Vital Signs Temp 98.3 F 01/07/23 21:59 Pulse 74 01/07/23 21:59 Resp 16 01/07/23 21:59 BP 114/63 01/07/23 21:59 Pulse Ox 97 01/07/23 21:59 O2 Del Method Room Air 01/07/23 21:59 BMI result Body Mass Index 46.3 Vital signs were normal. Exam: General: Awake, alert in no distress Head: Normocephalic, atraumatic EENT: PERRL, Lids normal, sclera normal, conjunctiva normal, nose normal , ears normal, throat without erythema or exudates Neck: Supple, no adenopathy, trachea midline and nontender Lung: breath sounds symmetric, no wheezing, rales or rhonchi Chest: symmetric movement, nontender Heart: regular rate and rhythm, normal S1, S2 no murmurs or rubs Abdomen: soft, non-tender, nondistended, normal bowel sounds Back: no vertebral tenderness, no CVAT Extremities: no deformities, moves all extremities symmetrically Skin: no rashes, no lesion, normal color and warmth Neuro: Awake, alert, oriented, normal speech, cranial nerves intact, moves all extremities symmetrically Psych: Pleasant, cooperative Course Course Course Narrative: RME - 22 yo currently 6.5 weeks presenting with pelvic cramping for 1 week. Had recent labs showing HCG levels are not doubling as expected however she had a pelvic U/S here 1 week ago showing IUP. No vaginal bleeding. blood type A+ Plan: repeat HCG and pelvic U/S today. Medical Decision Making Medical Decision Making [facility] Narrative: 22-year-old female , 7 weeks 2 days by LMP who presents emergency department for evaluation of lower abdominal cramping x1 week and concern for possible miscarriage. Patient's vital signs were normal. Physical examination was unremarkable with no abdominal tenderness. Following evaluation was ordered on the patient: CBC, CMP, quantitative beta-hCG, OBGYN ultrasound. 2216: The patient's laboratory evaluation did reveal mild anemia. Patient's quantitative beta HCGs have been trending up appropriately 12/18/2022: Quantitative beta-hCG 40 12/31/2022 quantitative beta-hC. 01/07/2023 quantitative beta HCGs: 30,507. blood donor recruiter ultrasound revealed a single intrauterine measuring 6 weeks 2 days +/-4 days which correlates with her LMP dates. EDC estimated at August 31 2023 There are no other abnormalities seen on the ultrasound. Patient will be discharged home, she is advised take Tylenol for pain, she is advised to follow-up with OBGYN for further evaluation and treatment Differential Diagnosis Differential diagnosis includes was not limited to ectopic , miscarriage, intrauterine , uterine ligament stretching Admission/Observation Consideration of admission/observation: Escalation of care including admission/observation considered Lab Data [facility] Lab Attestation statement: I reviewed the patient's lab results. Laboratory data was normal except for mild anemia with an H&H of 12 and 35 . The patient had an elevated quantitative beta-hCG of 30,507 01/07/23 20:29 01/07/23 20:29 Labs: Lab Results 01/07/23 01/07/23 Range/Units 20:29 20:29 WBC 7.1 (4.8-10.8) X10*3/uL RBC 3.78 L (4.20-5.50) X10*6/uL Hgb 12.2 (12.0-16.0) g/dl Hct 35.1 L (37.0-47.0) % MCV 92.9 (80.0-98.0) fL MCH 32.3 (27.0-33.0) pg MCHC 34.8 (31.0-35.0) g/dl RDW 12.5 (11.0-16.0) % Plt Count 239 (160-400) X10*3/uL MPV 9.6 (9.4-12.3) fL Immature Gran % (Auto) 0.4 (0.0-0.4) % Neut % (Auto) 45.8 (45-73) % Lymph % (Auto) 44.8 H (20-40) % [place] % (Auto) 6.9 (2-11) % Eos % (Auto) 1.7 (0-4) % Baso % (Auto) 0.4 (0-2) % Lymph # (Auto) 3.2 (1.2-4.9) X10*3/uL [place] # (Auto) 0.5 (0.1-1.2) X10*3/uL Eos # (Auto) 0.1 (0.0-0.4) X10*3/uL Baso # (Auto) 0.0 (0.0-0.2) X10*3/uL Abs Immat Gran (auto) 0.03 (0.00-0.03) X10*3/uL Absolute Neuts (auto) 3.3 (2.0-8.3) x10*3/uL Absolute Nucleated RBC 0.000 (0.0-0.012) X10*3/uL Nucleated RBC % (auto) 0.0 (0.0-0.2) /100WBC Sodium 138 (135-145) mmol/L Potassium 3.6 (3.3-5.1) mmol/L Chloride 106 (96-108) mmol/L Carbon Dioxide 22 (22-29) mmol/L Anion Gap 14 (12-20) BUN 6 L (9-16) mg/dL Creatinine 0.70 (0.5-1.4) mg/dL Estim Creat Clear Calc 137.5 Estimated GFR > 60 Random Glucose 107 (60-115) mg/dL Calcium 9.3 (8.4-10.2) mg/dL Magnesium 2.1 (1.6-2.6) mg/dL Total Bilirubin 0.3 (0.0-1.0) mg/dL Direct Bilirubin 0.1 (0.0-0.5) mg/dL AST 22 (5-31) U/L ALT 28 (0-31) U/L Alkaline Phosphatase 51 (39-117) U/L Total Protein 7.2 (6.5-8.0) g/dL Albumin 3.7 (3.5-5.0) g/dL Beta HCG, Quant 86946 mIU/mL Radiology Impression Discussion of test interpretation with radiology: I have reviewed the radiologist's reading. Radiologist Impression: US OB pelvic and transvaginal IMPRESSION: 1. Single intrauterine gestation with ultrasound gestational age of 6 weeks 2 days +/- 4 days. 2. Estimated date of delivery is 08/31/2023 +/- 4 days. 3. No maternal adnexal mass or pelvic ascites. Dictated By:Aj Pulido MD Prescription Management I considered prescription management with: Pain Medication (Tylenol) Discharge Plan Discharge Clinical Impression: Abdominal pain affecting , Intrauterine Patient Disposition: Home, Self-Care Additional Instructions: Your quantitative beta HCGs have been going up appropriately. 12/18/2022 quantitative beta-hC 12/31/2022 quantitative beta-hC 01/07/2023 quantitative beta-hC You had a CBC, CMP done today which was normal except for mild anemia with an H &H of 12 and 35. Continue taking your vitamins. Your OB ultrasound today revealed a single intrauterine 6 weeks and 2 days +/-4 days with an estimated delivery date of 08/31/2023 +/-4 days Please show the radiology reading below to your OBGYN. Your exam today was normal. The cramping that your experiencing most likely caused by the uterus growing and stretching ligaments then hold the uterus in place. Take Tylenol (acetaminophen) 500 mg pills, 2 pills every 6 hours as needed for pain or fever. Follow-up with your doctor in 2 days. Please return to the our emergency department if your symptoms get worse or if you develop any symptoms that are concerning to you. When your gets past 20 weeks, if you are having any issues, you should either go to the emergency department at [facility] where your going to have the baby or go to [facility] since we do not have the ability to take care of women that are greater than 20 weeks . EXAMINATION: US OBSTETRICAL ULTRASOUND FINDINGS: There is a single intrauterine gestational sac with visible yolk sac, embryo/fetus, and cardiac activity. There is no significant subchorionic hemorrhage or hematoma. HR: 116 beats per minute. The yolk sac identified. CRL (crown rump length): 0.44 cm (6 weeks 1 day +/- 4 days). MARIA DEL ROSARIO (estimated date of delivery): 08/31/2023 +/- 4 days. MATERNAL ADNEXA: The right maternal ovary measures 3.2 x 2.4 x 2.3 cm. There is corpus luteal 1.8 x 1.6 x 1.3 cm cyst. The left maternal ovary measures 3.0 x 1.7 x 1.8 cm. There is no significant maternal adnexal mass. No maternal pelvic ascites. US/US OB pelvic and transvaginal IMPRESSION: 1. Single intrauterine gestation with ultrasound gestational age of 6 weeks 2 days +/- 4 days. 2. Estimated date of delivery is 08/31/2023 +/- 4 days. 3. No maternal adnexal mass or pelvic ascites. Dictated By:Aj Pulido MD Prescriptions: No Action cephalexin 500 mg capsule 500 mg PO QID Qty: 28 0RF metronidazole 500 mg tablet 500 mg PO Q12H Qty: 14 0RF doxycycline hyclate 100 mg capsule 100 mg PO BID Qty: 14 0RF pantoprazole [Protonix] 40 mg tablet,delayed release (DR/EC) 40 mg PO DAILY Qty: 20 0RF ibuprofen 600 mg tablet 600 mg PO Q8H PRN (Reason: pain) Qty: 20 0RF fluticasone propionate [Flonase Allergy Relief] 50 mcg/actuation spray,suspension 1 spray intranasal BID Qty: 16 0RF Rx Instructions: administer into each nostril loratadine 10 mg tablet 10 mg PO DAILY PRN (Reason: allergy symptoms) Qty: 20 0RF
[2023-01-07 20:57] LABS: MANUAL DIFF FLAG NO
[2023-01-07 21:03] LABS: Basophils Percent Auto 0.4 % (0-2); Eosinophils Absolute Auto 0.1 X10*3/uL (0.0-0.4); Eosinophils Percent Auto 1.7 % (0-4); Hematocrit 35.1 % (37.0-47.0); Hemoglobin 12.2 g/dl (12.0-16.0); Imm Gran Abs Auto 0.03 X10*3/uL (0.00-0.03); Imm Gran Pct Auto 0.4 % (0.0-0.4); Lymphocytes Absolute Auto 3.2 X10*3/uL (1.2-4.9); Lymphocytes Percent Auto 44.8 % (20-40); Mean Corpuscular HGB Conc 34.8 g/dl (31.0-35.0); Mean Corpuscular Hemoglobin 32.3 pg (27.0-33.0); Mean Corpuscular Volume 92.9 fL (80.0-98.0); Mean Platelet Volume 9.6 fL (9.4-12.3); Monocytes Absolute Auto 0.5 X10*3/uL (0.1-1.2); Monocytes Percent Auto 6.9 % (2-11); Neutrophils Absolute Auto 3.3 x10*3/uL (2.0-8.3); Neutrophils Percent Auto 45.8 % (45-73); Platelet Count 239 X10*3/uL (160-400); Red Blood Count 3.78 X10*6/uL (4.20-5.50); Red Cell Distribution Width 12.5 % (11.0-16.0); White Blood Count 7.1 X10*3/uL (4.8-10.8)
[2023-01-07 21:21] VITALS: BP 111/71; PULSE 79; RESP 16; TEMP 37.1; O2SAT 98
--- NOTE | 2023-01-07 21:22 | MHC.EDTECH ---
this pct just assumed care of patient ,vitals sign taken ,patient unable to give urinal sample at this time .
--- OUTSIDE RECORDS SUMMARY | 2023-01-07 21:23 | XMS_ITS | Continuity of Care Document ---
Author Name Unknown Organization [facility] [employer] Address [address] [place] [id number]- Care Team Providers Care Salesperson [employer] Name Role Phone Isabel Rodgers MD Primary Care Physician [phone] Encounter [facility] Date(s): 12/04/20 - 12/05/[address] [address]- Discharge Disposition: A-D/C Walkout Attending Physician: Not on Staff, Attending MD Admitting Physician: Not on Staff, Admitting MD Referring Physician: Not on Staff, Referring MD Allergies, Adverse Reactions, Alerts Substance Reaction Severity Status NKA Active Vital Signs Most recent to oldest [Reference Range]: 1 2 Oxygen Saturation [94-100 %] 100 % (12/05/20 12:53 AM) 100 % (12/04/20 9:19 PM) Pulse Rate [55-90 bpm] 55 bpm (12/05/20 12:53 AM) 62 bpm (12/04/20 9:19 PM) Blood Pressure [90-138/55-84 mm Hg] 112/ 68mm Hg (12/05/20 12:53 AM) 113/55mm Hg (12/04/20 9:19 PM) Respiratory Rate [16-30 br/min] 16 br/mi n (12/05/20 12:53 AM) 17 br/min (12/04/20 9:19 PM) Temperature [96.8-100.4 DegF] 98.5 DegF (12/04/20 9:19 PM) Mode of Delivery (Oxygen) Room air (12/05/20 12:53 AM) Room air (12/04/20 9:19 PM) Temperature Route Oral (12/04/20 9:19 PM) Social History Social History Type Response Smoking Status Never smoker; Tobacc o user in household: No entered on: 01/11/15 Sex
[2023-01-07 21:24] LABS: Alanine Aminotransferase 28 U/L (0-31); Albumin Level 3.7 g/dL (3.5-5.0); Alkaline Phosphatase 51 U/L (39-117); Anion Gap 14 (12-20); Aspartate Amino Transferase 22 U/L (5-31); Bilirubin Direct 0.1 mg/dL (0.0-0.5); Bilirubin Total 0.3 mg/dL (0.0-1.0); Blood Urea Nitrogen 6 mg/dL (9-16); Calcium 9.3 mg/dL (8.4-10.2); Carbon Dioxide 22 mmol/L (22-29); Chloride 106 mmol/L (96-108); Creatinine Clr Calc Pharmacy 137.5; Estimated Glomerular Filt Rate > 60; Glucose Random 107 mg/dL (60-115); Magnesium 2.1 mg/dL (1.6-2.6); Potassium 3.6 mmol/L (3.3-5.1); Sodium 138 mmol/L (135-145); Total Protein 7.2 g/dL (6.5-8.0)
[2023-01-07 21:59] VITALS: BP 114/63; PULSE 74; RESP 16; TEMP 36.8; O2SAT 97
--- NOTE | 2023-01-07 22:05 | MHC.EDTECH ---
PATIENT 2200 ROUNDING DONE ,VITALS SIGN TAKEN ,PATIENT HAD APPLE JUICE TO DRINK .
[2023-01-07 22:29] VITALS: BP 124/72; PULSE 74; RESP 16; O2SAT 99
== END 2023-01-07 22:31 | disposition home or self-care (01) ==
PROVIDERS: Physician Assistant; Emergency Provider Emergency Medicine Emergency Medical Services
DX: O26.91 Pregnancy related conditions, unspecified, first trimester (principal); R10.2 Pelvic and perineal pain; Z3A.01 Less than 8 weeks gestation of pregnancy; Z37.9 Outcome of delivery, unspecified; Z79.899 Other long term (current) drug therapy
CPT/HCPCS: 36415; 76801; 76817; 80048; 80076; 83735; 84702; 85025; 99283; 99284

== ENCOUNTER 2023-04-06 12:09 | Outpatient (REF) | payer OTHER, SELFPAY ==
[2023-04-06 12:58] LABS: Influenza A PCR NEGATIVE (Negative); Influenza B PCR NEGATIVE (Negative); Resp Syncy Virus RNA Qual PCR NEGATIVE (Negative); SARS COV2 PCR INHOUSE NEGATIVE (Negative)
== END 2023-04-06 12:10 | disposition home or self-care (01) ==
LOC: HO.LNP 12:09
PROVIDERS: Visit Provider Internal Medicine
DX: Z11.52 Encounter for screening for COVID-19 (principal); R09.89 Other specified symptoms and signs involving the circulatory and respiratory systems; Z20.822 Contact with and (suspected) exposure to COVID-19
CPT/HCPCS: 0241U

== ENCOUNTER 2023-05-27 13:25 | Outpatient (REF) | payer OTHER, SELFPAY ==
[2023-05-27 14:43] LABS: Influenza A PCR NEGATIVE (Negative); Influenza B PCR NEGATIVE (Negative); Resp Syncy Virus RNA Qual PCR NEGATIVE (Negative); SARS COV2 PCR INHOUSE NEGATIVE (Negative)
== END 2023-05-27 13:26 | disposition home or self-care (01) ==
LOC: HO.LAB 13:25
PROVIDERS: PCP Physician Assistant; Visit Provider Internal Medicine
DX: R09.89 Other specified symptoms and signs involving the circulatory and respiratory systems (principal); Z20.828 Contact with and (suspected) exposure to other viral communicable diseases; Z20.822 Contact with and (suspected) exposure to COVID-19
CPT/HCPCS: 0241U

== ENCOUNTER 2024-03-24 14:43 | Emergency (ER) | payer MEDICAID, SELFPAY ==
--- NOTE | ~2024-03-24 | XR_ITS ---
EXAMINATION: XR LUMBOSACRAL SPINE CLINICAL INFORMATION: Right lower back pain. COMPARISON: None available. TECHNIQUE: Three views of the lumbosacral spine. FINDINGS: The vertebral bodies and posterior elements are normal. The disc spaces are preserved and the vertebral alignment is normal. The paraspinal soft tissues are normal. XR/XR lumbar spine 2-3V IMPRESSION: No acute osseous lumbar spine abnormality. No significant degenerative disease. Electronically signed by: Jacoby Girard DO 03/24/2024 08:00 PM EDT
--- NOTE | 2024-03-24 14:57 | ED_ITS ---
HPI - General Adult General Chief complaint: General Medical Stated complaint: Migraine 2 days, back pain Time Seen by Provider: 03/24/24 17:01 Source: patient Mode of arrival: ambulatory Limitations: no limitations History of Present Illness ED Provider: robin THOMAS narrative: Patient is a 23-year-old female with history of migraines presenting to the emergency department with complaint of lower back pain for the past 3 weeks as well as a migraine for the past few days. Denies any urinary symptoms but states that she tested her urine at home and noted protein in her urine. Denies any prior history of kidney disease. States that she typically takes Excedrin for migraines but that has not worked this time. Denies any blurred vision, double vision or other visual changes. Denies any nausea or vomiting. States back pain is to right lower back and right lateral hip. Denies any saddle anesthesia or bowel or bladder incontinence. Denies fevers, history of cancer, IVDU. MD complaint: back pain, migraine Related Data Previous Rx's ?Medication ?Instructions ?Recorded cephalexin 500 mg capsule 500 mg PO QID pain #28 caps 10/19/20 doxycycline hyclate 100 mg capsule 100 mg PO BID #14 caps 10/19/20 metronidazole 500 mg tablet 500 mg PO Q12H UTI #14 tabs 10/19/20 pantoprazole 40 mg tablet,delayed 40 mg PO DAILY #20 tabs 12/05/20 release (Protonix) fluticasone propionate 50 1 spray intranasal BID #16 grams 03/02/21 mcg/actuation nasal spray,suspension (Flonase Allergy Relief) ibuprofen 600 mg tablet 600 mg PO Q8H PRN pain #20 tabs 03/02/21 loratadine 10 mg tablet 10 mg PO DAILY PRN allergy 03/02/21 symptoms #20 tabs cyclobenzaprine 10 mg tablet 10 mg PO TID PRN muscle spasm #10 03/24/24 tabs lidocaine 5 % topical patch 1 patch topical DAILY #15 ea 03/24/24 Allergies Allergy/AdvReac Type Severity Reaction Status Date / Time No Known Allergies Allergy Verified 03/24/24 15:10 [No Known Allergies*] Review of Systems Review of Systems: As per HPI Yes all other systems are reviewed and are negative Constitutional: Constitutional: Reports as per HPI PMFSH Past Medical History Medical History Asthma Social History Social History Alcohol intake: never Patient Tobacco Use Status: Never used Tobacco Advance Directives: No Advance Directives Information Provided: No Physical Exam ED Vital Signs: Vital Signs - 24 hr 03/24/24 15:08 Temperature 98.0 F Pulse Rate 78 Respiratory Rate 18 Blood Pressure 127/64 Pulse Oximetry 98 Oxygen Delivery Method Room Air BMI result Body Mass Index 49.7 Vital signs have been reviewed and appear to be correct. Blood pressure normal. Heart rate normal. Respiratory rate normal. Temperature normal. Oxygen saturation normal. Const General: cooperative, healthy appearing and no acute distress Orientation/consciousness: oriented to person, oriented to place, oriented to time and patient oriented x3 Limitations: no limitations HENMT Head: Yes normocephalic and Yes atraumatic Ears: external ears normal General nose exam: Normal external nose present Face and sinus: Yes face symmetric Mouth: oropharynx normal and moist mucous membranes Throat: Yes uvula midline Eyes Pupils: Equal, round and reactive pupils present Neck Neck: Yes normal visual inspection, Yes no meningeal signs and Yes supple Resp Effort & Inspection: normal respiratory effort and able to speak in complete sentences Auscultation: clear to auscultation bilaterally Cardio Rate: regular rate Rhythm: regular rhythm Heart sounds: S1 normal heart sound present and S2 normal heart sound present GI Palpation (GI): Soft to palpation and nontender Auscultation: normoactive bowel sounds General: Yes no CVA tenderness Back/Spine/Pelvis Back: no CVA tenderness Thoracic/Lumbar Spine: thoracic and lumbar spine normal to inspection, thoraco- lumbar ROM normal, straight leg raise negative bilaterally, pain with thoraco- lumbar ROM, paraspinal muscle tenderness on the right in the upper lumbar and in the mid lumbar, No thoracic spinal tenderness and No lumbar spinal tenderness Skin General skin exam: elasticity normal and turgor normal Neuro General: oriented to person, oriented to place, oriented to time, patient oriented x3, gait normal, tone normal, moves all extremities, Normal light touch and pain sensation, no meningeal signs, no focal motor deficits, CN's II-XI intact bilaterally and deep tendon reflexes 2+ bilaterally Cranial nerves: Yes Equal, round and reactive pupils present Cognition (Neuro): normal cognition Motor exam (neuro): 5/5 motor strength present throughout, Normal motor muscle tone present throughout and Motor abnormalities not present Extrem General: Yes full ROM, Yes no pedal edema and Yes no calf tenderness Psych Mental Status: mental status grossly normal Affect: normal affect Thought process: Normal thought process present Course Course Course Narrative: RME, this is a rapid medical exam performed by Sonny Hardy please refer to primary provider for complete H&P- 23 year old female presents for evaluation of headache. Patient reports a migraine headache for the last 2 days. She also complains of ?protein my urine. ? Plan for viral swabs, urinalysis Medications Administered Discontinued Medications Generic Name Dose Route Start Last Admin Trade Name Freq PRN Reason Stop Dose Admin Acetaminophen/Butalbital/Caffeine 1 tab 03/24/24 17:55 03/24/24 18:03 Butalb/Acetamin/Caff 50/325/40 Tablet PO 03/24/24 17:56 1 tab ONCE ONE Administration Medical Decision Making Medical Decision Making [facility] Narrative: Patient is a 23-year-old female with history of migraines presenting to the emergency department with complaint of lower back pain for the past 3 weeks as well as a migraine for the past few days. On exam patient is awake, A+Ox3, VS WNL, afebrile, normal neurological exam without focal deficits, physical exam findings as above. Given reported symptoms and physical exam findings, initial differential includes migraine versus tension headache, UTI/pyelonephritis, lumbar strain. Do not suspect malignancy/mass, SEA, cauda equina/cord compression. Urinalysis is without evidence of infection, no proteinuria. Patient signed out to CHRISTOPHE Dennis pending results of lumbar x-ray. She reports significant improvement in migraine after medication given in the ED. Assuming this is unremarkable, feel patient can be safely discharged home with muscle relaxer and lidocaine patches. Follow up with PCP. Patient is in agreement with this plan. Differential Diagnosis Differential Diagnoses: The differential diagnosis associated with the presentation includes As per [facility]. Lab Data [facility] Lab Attestation statement: I reviewed the patient's lab results. As per [facility]. Labs: Lab Results 03/24/24 Range/Units 17:23 Urine Color Yellow Urine Appearance Clear Urine pH 7.0 (5.0-9.0) Ur Specific [place] >= 1.030 H (1.005-1.025) Urine Protein Negative (Neg-Trace) mg/dL Urine Glucose (UA) Negative (Negative) mg/dL Urine Ketones Trace (Negative) mg/dL Urine Blood Negative (Negative) Urine Nitrite Negative (Negative) Ur Leukocyte Esterase Negative (Negative) Urine RBC 0-2 (0-2) /HPF Urine WBC 0-5 (0-5) /HPF Ur Squamous Epith Cells 6-10 (0-2) /HPF Urine Bacteria 1+ (None Seen) Hyaline Casts 0-2 (0-2) /LPF Urine Test NEGATIVE (NEGATIVE) Radiology Impression Discussion of test interpretation with radiology: I have reviewed the radiologist's reading. Radiologist Impression: FINDINGS: No acute cortical disruption or malalignment. No lytic or blastic lesions. No subcutaneous emphysema. XR/XR ankle RT min 3V IMPRESSION: No acute fracture or dislocation. Salter-Ambriz type I fracture cannot be excluded External Record Review External record reviewed: Inpatient record, Office record and Outpatient record Prescription Management I considered prescription management with: Other Discharge Plan Discharge Clinical Impression: Lumbar strain, Migraine Patient Disposition: Still a Patient Instructions: Migraine Headache (ED), Low Back Strain (ED), Lower Back Exercises (ED) Additional Instructions: You were evaluated in the emergency department today for back pain and headache. Your evaluation did not show signs of medical conditions requiring emergent intervention at this time. Your symptoms improved with medication in the ED. Your urine did not show any evidence of protein in the specimen provided today. We recommended that you use ibuprofen or Tylenol per package directions every 6 hours as needed for pain. If necessary, you can alternate these medications so that you take one medication every 3 hours. For instance, at noon take ibuprofen, then at 3:00 p.m. take Tylenol, then at 6:00 p.m. take ibuprofen. You have been prescribed a muscle relaxer which you may take every 8 hours as needed for spasms. You have been prescribed 5% topical lidocaine patches which you can wear for up to 12 hours in a 24 hour period. Do not apply heat directly over the patches. Please schedule an appointment for follow-up with your primary care physician this week for further evaluation of your symptoms. Return to the emergency department if you experience worsening back pain, difficulty walking, fevers, numbness, tingling, incontinence, groin numbness or tingling, or any other concerning symptoms. Prescriptions: New cyclobenzaprine 10 mg tablet 10 mg PO TID PRN (Reason: muscle spasm) Qty: 10 0RF lidocaine 5 % adhesive patch,medicated 1 patch topical DAILY Qty: 15 0RF Rx Instructions: leave on most painful area for up to 12 hrs No Action cephalexin 500 mg capsule 500 mg PO QID Qty: 28 0RF metronidazole 500 mg tablet 500 mg PO Q12H Qty: 14 0RF doxycycline hyclate 100 mg capsule 100 mg PO BID Qty: 14 0RF pantoprazole [Protonix] 40 mg tablet,delayed release (DR/EC) 40 mg PO DAILY Qty: 20 0RF ibuprofen 600 mg tablet 600 mg PO Q8H PRN (Reason: pain) Qty: 20 0RF fluticasone propionate [Flonase Allergy Relief] 50 mcg/actuation spray,suspension 1 spray intranasal BID Qty: 16 0RF Rx Instructions: administer into each nostril loratadine 10 mg tablet 10 mg PO DAILY PRN (Reason: allergy symptoms) Qty: 20 0RF Print Language: [place]an
[2024-03-24 15:08] VITALS: BP 127/64; PULSE 78; RESP 18; TEMP 36.7; O2SAT 98; BMI 49.7
--- NOTE | 2024-03-24 17:17 | PC.NURSE ---
pt refuses SARS/COV/FLU swab- provider aware
[2024-03-24 17:39] LABS: Appearance Urine Clear; Color Urine Yellow; Glucose Urine UA Negative (Negative); Leukocyte Esterase Urine Negative (Negative); Nitrite Urine Negative (Negative); Specific Gravity - Urine >= 1.030 (1.005-1.025); Urine Blood Negative (Negative); Urine Ketones Trace mg/dL (Negative); Urine Protein Negative (Neg-Trace)
[2024-03-24 17:42] LABS: Bacteria Urine 1+ (None Seen); Hyaline Casts Urine 0-2 /LPF (0-2); RBC Urine 0-2 /HPF (0-2); WBC Urine 0-5 /HPF (0-5)
[2024-03-24] MEDS: Butalb/Acetamin/Caff 50/325/40 TABLET 1 TAB PO (18:03)
[2024-03-24 18:31] LABS: UPreg QC Valid YES; Urine Pregnancy NEGATIVE (NEGATIVE)
[2024-03-24 20:21] VITALS: BP 137/78; PULSE 68; RESP 18; TEMP 36.6; O2SAT 98
== END 2024-03-24 20:22 | disposition home or self-care (01) ==
PROVIDERS: Physician Assistant; Registered Nurse Emergency; Emergency Provider Emergency Medicine; PCP Physician Assistant
DX: M54.50 Low back pain, unspecified (principal); G43.909 Migraine, unspecified, not intractable, without status migrainosus; Z79.899 Other long term (current) drug therapy
CPT/HCPCS: 72100; 81001; 81025; 99283

== ENCOUNTER 2024-09-07 08:27 | Outpatient (REF) | payer OTHER, MEDICAID, SELFPAY ==
--- OUTSIDE RECORDS SUMMARY | 2024-09-07 10:02 | XMS_ITS | Clinical Summary ---
Author Organization 175 [facility] Address [address] [place] [address] Phone Care Team Providers Care Child Psychologist Name Role Phone Martina Lou Primary Care [...] Department Care Team Description 06/14/2024 Telephone Walk-In [facility] [address] [place] [address] Jodie Cueto NP 06/12/2024 2:00 PM EST Office Visit Walk-In Clinic - [place] [address] [place] [address] Dimitris Wilkerson, [employer]ER Lower urinary tract symptoms (Primary Dx) from Last 3 Months Immunizations Name Administration Dates Next Due HPV 9-valent (Gardisil) 9yo to less than 46yo 06/29/2019 Influenza Quadravalent, MDCK , 0.5ml, preservative free (Flucelvax) 6mo and older 03/12/2023,05/09/2019,03/09/2018 PPD Test 06/29/2019,05/09/2019 [employer] SARS-CoV-2 COVID-19, mRNA, LNP-S, preservative free 08/28/2020 [...] EDT Office Visit Obstetrics and Gynecology - [place] [address] [place] [phone] Rolly Grijalva CNM [address] [place] [phone] Health Maintenance Due Date Last Done Comments [...] URINALYSIS - AUTOMATED METHOD 06/12/2024 8:00 PM [facility] WBC, Urine 10.0(H) 0 - 4 /HPF LAB URINALYSIS - AUTOMATED METHOD 06/12/2024 8:00 PM [facility] Squamous Epithelial, Urine 40 0 - 60 /LPF LAB URINALYSIS - AUTOMATED METHOD 06/12/2024 8:00 PM [facility] Bacteria, Urine Few(A) Negative /HPF LAB URINALYSIS - AUTOMATED METHOD 06/12/2024 8:00 PM [facility] Hyaline Casts, Urine 3.0 0 - 3 /LPF LAB URINALYSIS - AUTOMATED METHOD 06/12/2024 8:00 PM [facility] Urine Urine specimen obtained by clean catch procedure / Unknown Non-blood Collection / Unknown 06/12/2024 2:37 PM EST 06/12/2024 2:37 PM EST us Dimitris Wilkerson NP LAB URINE ORDERABLES Final Re sult Performing Organization Address [facility]/ZIP Co de Phone Number [facility] [address] [place] [address], * (ABNORMAL) Vaginitis pathogens molecular study (06/12/2024 2:37 PM EST) Trichomonas vaginalis Negative Negative 06/13/2024 9:13 AM [facility] Gardnerella vaginalis Negative Negative 06/13/2024 9:13 AM [facility] Aline Species Positive(A) Negative 06/13/19 9:13 AM [facility] Swab Vaginal structure / Unknown Non-blood Collection / Unknown 06/12/2024 2:37 PM EST 06/12/2024 2:37 PM EST us Dimitris Wilkerson NP LAB MICROBIOLOGY - GENERAL OR DERABLES Final Result Performing Organization Address [facility] Co de Phone Number [facility] [address] [place] [address], * Culture urine (06/12/2024 2:37 PM EST) Culture, Urine 10,000-49,000 CFU/mL Mixed urogenital liss, no uropathogens present. Suggest repeat specimen if clinically indicated. 06/13/2024 12:58 PM EST [facility] Urine Urine specimen from urethra / Unknown Non-blood Collection / Unknown 06/12/2024 2:37 PM EST 06/12/2024 2:37 PM EST us Dimitris Wilkerson NP LAB MICROBIOLOGY - GENERAL OR DERABLES Final Result [facility] [address] [place] [address], [place] [phone] * (ABNORMAL) POC Urine Non-Auto W/O Micro (06/12/2024 2:32 PM EST) GLUCOSE POC Negative Negative, Trace mg/dL Leukocytes UA POC 1+(A) Negative mg/dL Nitrite UA POC Negative Urobilinogen UA POC >=8.0 E.U./dL mg/dL Protein UA POC Negative Positive, Negative PH UA POC 8.0 SETH/HM UA POC 50(A) Negative Specific [place] UA POC 1.015 Ketones UA POC Negative Negative Bilirubin UA POC Negative Negative Urine Urine specimen obtained by clean catch procedure / Unknown 06/12/2024 2:32 PM EST Dimitris Wilkerson NP POINT OF CARE TEST ENTER/EDIT ORDERABLES Final Result * Pap smear (09/28/2023) 09/28/2023 Narrative HISTORICAL TESTING LAB RESULTING AGENCY - 10/02/2023 6:21 AM EDT [id number] THINPREP PAP, IMAGED: NEGATIVE FOR SQUAMOUS INTRAEPITHELIAL [...] * HIV Screening (02/03/2023) HIV Screening abstracted [facility] Provider HEALTH MAINTENANCE Final Result * Hepatitis C Screening (02/03/2023) Hepatitis C Screening abstracted [facility] Provider HEALTH MAINTENANCE Final Result * Depression Screening (02/03/2022) Depression Screening abstracted [facility] Provider MD HEALTH MAINTENANCE Final Result * (ABNORMAL) Lipid panel (06/19/2021) Pathologist [facility] LDL/HDL Ratio 4 0 - 4 Triglycerides 108 0 - 150 mg/dL Cholesterol 154 0 - 200 mg/dL HDL 39(A) >=40 mg/dL LDL Cholesterol 94 0 - 100 mg/dL Blood Venous blood specimen / Unknown Result [facility] Provider LAB BLOOD ORDERABLES Nicolle l Result from Last 3 Months or Most Recently Relevant to Health Maintenance Insurance [place] - [place] [facility] Care Teams Child Psychologist Relationship Specialty Start Date End Date Martina Lou PA [address] [address] PCP - General Internal Medicine 05/15/21
[2024-09-07 10:14] LABS: Influenza A PCR NEGATIVE (Negative); Influenza B PCR NEGATIVE (Negative); Resp Syncy Virus RNA Qual PCR NEGATIVE (Negative); SARS COV2 PCR INHOUSE NEGATIVE (Negative)
== END 2024-09-07 08:28 | disposition home or self-care (01) ==
LOC: HO.LNP 08:27
DX: J45.909 Unspecified asthma, uncomplicated (principal); J32.9 Chronic sinusitis, unspecified; B96.89 Other specified bacterial agents as the cause of diseases classified elsewhere; R09.89 Other specified symptoms and signs involving the circulatory and respiratory systems
CPT/HCPCS: 0241U

== ENCOUNTER 2024-09-07 08:27 | Outpatient (AMB) | payer OTHER, MEDICAID, SELFPAY ==
[2024-09-07 08:29] VITALS: BP 110/70; PULSE 75; O2SAT 98
--- NOTE | 2024-09-07 08:29 | A.OFFPC_ITS ---
Vital Signs 09/07/24 08:29 Height 5 ft BP 110/70 Blood Pressure Location Lt brachial Position Sitting Pulse 75 Pulse Source Pulse Oximeter Pulse Oximetry (%) 98 Oxygen Delivery Method Room Air Intake Visit Reasons: Cold Symptoms Allergies No Known Allergies [No Known Allergies*] Allergy (Verified 09/07/24 08:38) Medication List - Last Reconciled 09/07/24 by Dora Avila PA-C cyclobenzaprine 10 mg PO TID PRN fluticasone propionate 50 mcg/actuation (Flonase Allergy Relief) 1 spray intranasal BID ibuprofen 600 mg PO Q8H PRN lidocaine 5% 1 patch topical DAILY loratadine 10 mg PO DAILY PRN pantoprazole (Protonix) 40 mg PO DAILY Tobacco use date assessed: 09/07/24 Dental Screening Dental Screen Date: 09/07/24 Did you have a dental visit in the last 12 months?: Yes Did you have a dental problem in the last 6 months where you did not have access to dental care?: No Was dental information given to patient?: Patient has dentist HPI Cold Symptoms HPI Details 24-year-old female coming to the office for the 1st time for an acute problem. Presenting with sinus pain and discomfort. Two weeks ago, experienced sinus pressure and pain with intervening periods of improvement followed by worsening of symptoms. Symptoms include congestion, mild ear discomfort, and sinus-like pressure. Discussed asthma symptoms with a need for inhaler refill. Asthma control has been compromised recently, potentially due to the ongoing sinus- related symptoms. Increased albuterol use noted. Patient was recently started on albuterol inhaler last year by her previous PCP has noted using albuterol on a daily basis. [facility] Medical History (Updated 09/07/24 @ 08:54 by Dora Avila PA-C) Asthma Family History Mother No problems noted. Father No problems noted. Daughter No problems noted. Son No problems noted. Sister No problems noted. Sister No problems noted. Sister No problems noted. 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[employer] [place] Current occupational exposures/hazards: No Cognitive needs: No Hearing needs: No Vision needs: Yes Questionnaire Thrive Questionnaire Date Thrive assessed: 09/07/24 I am a: Patient What is your living situation today?: I have a steady place to live Within the past 12 months, did the food you bought not last and you didn't have the money to get more?: Never true Within the past 12 months, did you worry whether your food would run out before you got money to buy more?: Never true Do you have trouble paying for medicines?: No Do you have trouble getting transportation to medical appointments?: No Do you have trouble paying your heating and electricity bill?: No Do you have trouble taking care of your child, family member or friend?: No Do you have trouble with day-to-day activities such as bathing, preparing meals, shopping, managing finances, etc.?: No Are you currently unemployed and looking for a job?: No Are you interested in more education?: No Currently or been in a relationship where the following occur: No concerns reported THRIVE Score: 0 Review of Systems Const Denies body aches, Reports chills, Reports fatigue, Denies fever(s), Reports headache(s) and Denies poor appetite Eyes Reports no additional complaints ENT Details: Mild sore throat, sinus pressure and ear pressure Denies dysphagia, Denies dizziness, Reports headache(s) and Denies odynophagia Card Denies chest pain and Denies dyspnea Resp Reports cough, Denies excessive phlegm production and Denies dyspnea GI Denies abdominal pain, Denies constipation, Denies dysphagia, Denies diarrhea, Denies nausea, Denies odynophagia and Denies vomiting Reports no additional complaints Musc Reports no additional complaints and Denies abnormal gait Skin/Breast Reports system reviewed and no additional complaints, except as documented Neuro Denies abnormal gait, Denies dizziness and Reports headache(s) Psych Reports no additional complaints Endo Reports fatigue Physical exam (Primary Care) Vital Signs: Last Vital Signs Pulse 75 09/07/24 08:29 BP 110/70 09/07/24 08:29 Pulse Ox 98 09/07/24 08:29 Oxygen Delivery Method Room Air 09/07/24 08:29 Tobacco/Smoking Status: Tobacco use Status Tobacco use date assessed 09/07/24 09/07/24 08:31 Patient Tobacco Use Status Never used Tobacco 09/07/24 08:31 Tobacco use type Cigarette 09/07/24 08:31 e-Cigarette/Vaping Use Never Used 09/07/24 08:31 Thrive Assessment: Date of Thrive Assessment Date Thrive assessed 09/07/24 09/07/24 08:31 Currently or been in a relationship where the following occur: No concerns reported Const General: cooperative, healthy appearing, comfortable and no acute distress Orientation/consciousness: patient oriented x3 HENMT Head: Yes normocephalic Ears: hearing grossly normal bilaterally, TM's normal bilaterally and EAC's normal General nose exam: Normal external nose present Mouth: Normal oral and palatal mucosa present and oropharynx normal Throat: Yes posterior oropharynx normal Eyes General: appearance normal, both eyes and all related structures Conjunctivae: conjunctivae normal Neck Neck: Yes full ROM and Yes no lymphadenopathy Resp Effort & Inspection: normal respiratory effort Auscultation: clear to auscultation bilaterally, no crackles, no rales, no rhonchi and no wheezes Cardio Rate: regular rate Rhythm: regular rhythm Skin General skin exam: no rashes or lesions noted Neuro General: patient oriented x3 Gait exam (Neuro): Normal gait present Extrem General: Yes normal to inspection, Yes full ROM and No edema Psych Affect: normal affect Attitude: cooperative Insight: Good insight present (Psych) Judgement: Good judgement present (Psych) Coding Level of Care Code New Pt Level 3 (66451) Diagnoses Asthma J45.909 Bacterial sinusitis J32.9; B96.89 Assessment & Plan Assessment & Plan (1) Asthma: Code(s): J45.909 - Unspecified asthma, uncomplicated Category: Medical Plan: Has been not currently controlled on present medications. Patient was on albuterol as needed and mentions having to use it on a daily basis prior to cough and cold symptoms. Plan to add low-dose ICS with Laba for management advised to follow up. Avoid triggers such as allergies. (2) Bacterial sinusitis: Code(s): J32.9 - Chronic sinusitis, unspecified; B96.89 - Other specified bacterial agents as the cause of diseases classified elsewhere Category: Medical Plan: Patient having upper respiratory symptoms that initially resolved then worsened this week. Concern for bacterial sinusitis. Plan to order for viral swab for COVID/flu/RSV to rule out viral infection and treat with Augmentin twice daily for 7 days. Discussed to take this medication with food and plenty of water, may use probiotic as needed. Plan This note was constructed using voice recognition software. While every effort has been made to ensure accuracy and handbag parts cutter, still areas may have been included sometimes these areas may affect the content or meeting of the given symptoms. Total time spent caring for the patient today was 20 minutes. This includes time spent before the visit reviewing the chart, time spent during the visit, and time spent after the visit and documentation. Patient was informed and verbally consented to the use of an ambient scribe for clinic note documentation during this visit. Orders: Orders SARS-CoV2/FLU/RSV Today R09.89 - Other specified symptoms and signs involving the circulatory and respiratory systems Medications: New albuterol sulfate 90 mcg/actuation 1 inh inhalation QID 8.5 grams 0RF amoxicillin-pot clavulanate 875-125 mg 1 tab PO BID 7 days 14 tabs 0RF fluticasone propion-salmeterol 100-50 mcg/dose (Advair Diskus) 1 inh inhalation BID 60 ea 0RF Discontinued cephalexin Discontinued Reason: Patient Completed Course 500 mg PO QID 28 caps 0RF pain metronidazole Discontinued Reason: Patient Completed Course 500 mg PO Q12H 14 tabs 0RF UTI doxycycline hyclate Discontinued Reason: Patient Completed Course 100 mg PO BID 14 caps 0RF
--- OUTSIDE RECORDS SUMMARY | 2024-09-07 08:37 | XMS_ITS | Clinical Summary ---
Author Organization [address] [facility] Address [address] [place] [address] Phone Care Team Providers Care Sterile Preparation Technician Name Role Phone Martina Lou Primary Care Provider + Allergies Active Allergy Reactions Criticality Noted Date Comments Levonorgestrel-Ethinyl Estrad 2020 Medications albuterol HFA (PROAIR HFA ; PROVENTIL HFA ; VENTOLIN HFA) 90 mcg/actuation inhaler Inhale 2 Puffs into the lungs 4 times daily as needed for Cough, Wheezing or Shortness of Breath. 4 Active triamcinolone (KENALOG) 0.5 % cream Apply thin layer of to affected areas twice a day x 2 weeks. 4 Active norethindrone (ANA,ALVIN,H EATHER,MICRONOR ) 0.35 mg tablet Take 1 tablet (0.35 mg total) by mouth 1 (one) time each day. 28 tablet 3 5 Active norethindrone (ANA,ALVIN,H EATHER,MICRONOR ) 0.35 mg tablet Take 1 Tablet by mouth daily for 360 days. 4 08/25/19 25 Discontinu ed(Reorder ) Active Problems Problem Noted Date Diagnosed Date Palpitations 07/23/2023 Allergies 08/21/2020 Anxiety and depression 12/15/2017 Overview (03/16/2024): No meds Asthma 12/15/2017 Overview (03/16/2024): Caused by excessive heat and cold temperatures, Albuterol not taken in 2 years. Eczema 12/15/2017 Overview (03/16/2024): Uses ointment daily. Encounters Date Type Department Care Team Description 06/14/2024 Telephone Walk-In [facility] [address] [place] [address] Jodie Cueto NP 06/12/2024 2:00 PM EST Office Visit [facility] - [place] [address] [place] [address] Dimitris Wilkerson, DOT COMPLIANCE COORDINATOR Lower urinary tract symptoms (Primary Dx) from Last 3 Months Immunizations Name Administration Dates Next Due HPV 9-valent (Gardisil) 9yo to less than 46yo 06/29/2019 Influenza Quadravalent, MDCK , 0.5ml, preservative free (Flucelvax) 6mo and older 03/12/2023,05/09/2019,03/09/2018 PPD Test 06/29/2019,05/09/2019 Newstag SARS-CoV-2 COVID-19, mRNA, LNP-S, preservative free 08/28/2020 Tdap Tetanus diptheria acell ular pertussis (Boostrix; Adacel) 7yo and older 06/04/2023,05/04/2018 Surgical History Surgery Date Site/Laterality Comments SECTION 07/2018 PROCEDURE: HISTORICAL ; COMMENT: no complications. Medical History Medical History Date Comments Asthma DX:Asthma; COMME NT: started as baby, when it's really cold or hot , uses albuterol not since 2 yrs ago Eczema DX:Eczema; COMME NT: caused by heat, uses ointment, unsure of name, ?triamcinolone. Advised to check w/ prescriber on safety. Migraines DX:Migraines Anxiety and depression DX:Anxiet y and depression; COMMENT: no meds Family History Medical History Relation Name Comments Breast cancer Aunt 1 Paternal Colon cancer Aunt 2 Paterna Glaucoma Father Hypertension Father Migraines Father Asthma Maternal Grandfather Hypertension Maternal Grandfather Other: Other, Cardiac problems Maternal Grandfather Cataracts Maternal Grandmother Diabetes Maternal Grandmother Hypertension Maternal Grandmother Asthma Mother Depression Mother Hypertension Mother Esophageal cancer Paternal Grandfather No Known Problems Paternal Grandmother No Known Problems Sister 1 Bipolar disorder Sister 2 Cervical cancer Sister 2 Depression Sister 2 Other: Other, multiple personality disorder Sister 2 No Known Problems Sister 3 Ovarian cancer Neg Hx Uterine cancer Neg Hx Relation Name Status Comments Aunt 1 Paternal Aunt 2 Pater[place] Alive Daughter Jennifer Alive Father Alive Maternal Grandfather Maternal Grandmother Alive Mother Alive Paternal Grandfather Paternal Grandmother Alive Sister 1 Alive Sister 2 Alive Sister 3 Alive Social History Tobacco Use Types Packs/Day Years Used Date Smoking Tobacco: Never Smokeless Tobacco: Never Alcohol Use Standard Drinks/Week Comments No 0 (1 standard drink = 0.6 oz pur e alcohol) Comments Unknown Sex and Gender Information Value Date Recorded Sex Assigned at Not on file Legal Sex Female 6:15 AM EST Gender Identity Not on file Sexual Orientation Not on file Obstetrics History Last Filed Vital Signs Vital Sign Reading Time Taken Comments Blood Pressure 92/68 06/12/2024 2:08 PM EST Pulse 70 06/12/2024 2:08 PM EST Temperature 36.1 ??C (97 ??F) 06/12/2024 2:08 PM EST Respiratory Rate - - Oxygen Saturation 98% 06/12/2024 2:08 PM EST Inhaled Oxygen Concentration - - Weight 110 kg (243 lb 6.4 oz) 09/28/2023 12:58 P M EDT Height 152.4 cm (5') 09/28/2023 12:58 PM EDT Body Mass Index 47.54 09/28/2023 12:58 PM EDT Plan of Treatment Upcoming Encounters Date Type Department Care Team (Late st Contact Info) Description 12/15/2024 3:30 PM EDT Office Visit Obstetrics and Gynecology - [place] [address] [place] [id number] Rolly Grijalva CNM [address] [place] [phone] Health Maintenance Due Date Last Done Comments Pneumococcal Vaccine: Pediatrics (0 to 5 Years) and At-Risk Patients (6 to 64 Years) (1 of 1 - PPSV23) 2004 03/03/2000, 01/02/2000 Social Influencers of Health Screening 05/08/2022 Depression Screening 02/03/2023 02/03/2022 COVID-19 Vaccine ( season) 2024 10/19/2020, 09/28/2020, 08/28/2020 Influenza Vaccine (#1) 2024 , 05/09/2019, 03/09/2018, Additional history exists Cholesterol Screening (Lipid Panel) 06/19/2026 06/19/2021 Cervical Cancer Screening: Pap Smear 09/27/2026 09/28/2023, 09/28/2023, 09/28/2023, Additional history exists DTaP,Tdap,and Td Vaccines (9 - Td or Tdap) 06/04/2033 06/04/2023, 05/04/2018, 02/06/2010, Additional history exists Hepatitis B Vaccines Completed 03/26/1999, 1998, 1998 HIB Vaccines Completed 10/02/1999, 11/29, 1998, Additional history exists IPV Vaccines Completed 06/22/2002, 07/1999, 1998, Additional history exists MMR Vaccines Completed 06/22/2002, 10/02/1999 Varicella Vaccines Completed 02/24/2008, 07/04/1999 Hepatitis A Vaccines Completed 02/21/2016, 12/01/19 15 Meningococcal ACWY Vaccine Completed 02/21/2016, HPV Vaccines Completed 06/29/2019, 07/30, 04/15/2010, Additional history exists HIV Screening Completed 02/03/2023 Hepatitis C Screening Completed 02/03/2023 Gonorrhea/Chlamydia Screening Discontinued 02/11/2023 Meningococcal B Vaccine Aged Out No l onger eligible based on patient's age to complete this topic RSV Immunization Patients Under 20 months Aged Out No longer eligible based on patient's age to complete this topic Procedures Procedure Name Priority Date/Time Associated Diagnosis Comments URINALYSIS MICROSCOPIC ONLY Routine 06/12/2024 2:37 PM EST Lower urinary tract symptoms URINALYSIS MICROSCOPIC ONLY Routine 06/12/2024 2:37 PM EST Lower urinary tract symptoms VAGINITIS PATHOGENS BY PCR Routine 06/12/2024 2:37 PM EST Lower urinary tract symptoms CULTURE URINE Routine 06/12/2024 2:37 PM EST Lower urinary tract symptoms POC URINE NON-AUTO W/O MICRO Routine 06/12/2024 2:32 PM EST Lower urinary tract symptoms PAP SMEAR Routine 09/28/2023 HM GONORRHEA/CHLAMYDIA SCRREENING Routine 02/11/2023 HM HEPATITIS C SCREENING Routine 02/03/2023 HM HIV SCREENING Routine 02/03/2023 HM DEPRESSION SCREENING Routine 02/03/2022 LIPID PANEL Routine 06/19/2021 from Last 3 Months or Most Recently Relevant to Health Maintenance Results * (ABNORMAL) Urinalysis microscopic only (06/12/2024 2:37 PM EST) RBC, Urine 4.0 0 - 4 /HPF LAB URINALYSIS - AUTOMATED METHOD 06/12/2024 8:00 PM [facility] WBC, Urine 10.0(H) 0 - 4 /HPF LAB URINALYSIS - AUTOMATED METHOD 06/12/2024 8:00 PM [facility] Squamous Epithelial, Urine 40 0 - 60 /LPF LAB URINALYSIS - AUTOMATED METHOD 06/12/2024 8:00 PM [facility] Bacteria, Urine Few(A) Negative /HPF LAB URINALYSIS - AUTOMATED METHOD 06/12/2024 8:00 PM [facility] Hyaline Casts, Urine 3.0 0 - 3 /LPF LAB URINALYSIS - AUTOMATED METHOD 06/12/2024 8:00 PM [facility] Urine Urine specimen obtained by clean catch procedure / Unknown Non-blood Collection / Unknown 06/12/2024 2:37 PM EST 06/12/2024 2:37 PM EST us Dimitris Wilkerson NP LAB URINE ORDERABLES Final Re sult Performing Organization Address [facility]/ZIP Co de Phone Number [facility] [address] [place] [address], * (ABNORMAL) Vaginitis pathogens molecular study (06/12/2024 2:37 PM EST) Trichomonas vaginalis Negative Negative 06/13/2024 9:13 AM [facility] Gardnerella vaginalis Negative Negative 06/13/2024 9:13 AM [facility] Aline Species Positive(A) Negative 06/13/19 9:13 AM [facility] Swab Vaginal structure / Unknown Non-blood Collection / Unknown 06/12/2024 2:37 PM EST 06/12/2024 2:37 PM EST us Dimitris Wilkerson NP LAB MICROBIOLOGY - GENERAL OR DERABLES Final Result Performing Organization Address [facility] Co de Phone Number [facility] [address] [place] [address], * Culture urine (06/12/2024 2:37 PM EST) Culture, Urine 10,000-49,000 CFU/mL Mixed urogenital liss, no uropathogens present. Suggest repeat specimen if clinically indicated. 06/13/2024 12:58 PM EST [facility] Urine Urine specimen from urethra / Unknown Non-blood Collection / Unknown 06/12/2024 2:37 PM EST 06/12/2024 2:37 PM EST us Dimitris Wilkerson NP LAB MICROBIOLOGY - GENERAL OR DERABLES Final Result [facility] [address] [place] [address], [place] [phone] * (ABNORMAL) POC Urine Non-Auto W/O Micro (06/12/2024 2:32 PM EST) GLUCOSE POC Negative Negative, Trace mg/dL Leukocytes UA POC 1+(A) Negative mg/dL Nitrite UA POC Negative Urobilinogen UA POC >=8.0 E.U./dL mg/dL Protein UA POC Negative Positive, Negative PH UA POC 8.0 SETH/HM UA POC 50(A) Negative Specific [place] UA POC 1.015 Ketones UA POC Negative Negative Bilirubin UA POC Negative Negative Urine Urine specimen obtained by clean catch procedure / Unknown 06/12/2024 2:32 PM EST Dimitris Wilkerson NP POINT OF CARE TEST ENTER/EDIT ORDERABLES Final Result * Pap smear (09/28/2023) 09/28/2023 Narrative HISTORICAL TESTING LAB RESULTING AGENCY - 10/02/2023 6:21 AM EDT [id number] THINPREP PAP, IMAGED: NEGATIVE FOR SQUAMOUS INTRAEPITHELIAL LESION AND MALIGNANCY LETICIA PRABHAKAR(ASCP) (CASE ELECTRONICALLY SIGNED 10 01 2023) ADEQUACY: SATISFACTORY ENDOCERVICAL/TRANSFORMATION ZONE COMPONENT ABSENT. SOURCE: THINPREP PAP HPV IF ASCUS, CERVICAL, IMAGED CLINICAL INFORMATION: HPV IF DIAGNOSIS OF ASCUS. POST , PAP HX NEGATIVE IN 2020, LMP 11/17/22, [Z12.4] Rolly Grijalva CNM LAB CYTOLOGY ORDERABLES Final Result HISTORICAL TESTING LAB RESULTING AGENCY * Gonorrhea/Chlamydia Screening (02/11/2023) Gonorrhea/Chla mydia Screening abstracted Historical Provider HEALTH MAINTENANCE Final Result * HIV Screening (02/03/2023) HIV Screening abstracted [facility] Provider HEALTH MAINTENANCE Final Result * Hepatitis C Screening (02/03/2023) Hepatitis C Screening abstracted [facility] Provider HEALTH MAINTENANCE Final Result * Depression Screening (02/03/2022) Depression Screening abstracted [facility] Provider MD HEALTH MAINTENANCE Final Result * (ABNORMAL) Lipid panel (06/19/2021) Pathologist [facility] LDL/HDL Ratio 4 0 - 4 Triglycerides 108 0 - 150 mg/dL Cholesterol 154 0 - 200 mg/dL HDL 39(A) >=40 mg/dL LDL Cholesterol 94 0 - 100 mg/dL Blood Venous blood specimen / Unknown Result [facility] Provider LAB BLOOD ORDERABLES Nicolle l Result from Last 3 Months or Most Recently Relevant to Health Maintenance Insurance [place] - [place] [facility] Care Teams Sterile Preparation Technician Relationship Specialty Start Date End Date Martina Luo PA [address] [address] PCP - General Internal Medicine 05/15/21
== END 2024-09-07 09:02 | disposition home or self-care (01) ==
DX: J45.909 Unspecified asthma, uncomplicated (principal); J32.9 Chronic sinusitis, unspecified; B96.89 Other specified bacterial agents as the cause of diseases classified elsewhere

== ENCOUNTER 2024-09-21 15:56 | Outpatient (AMB) | payer OTHER, SELFPAY ==
--- NOTE | 2024-09-21 16:02 | A.OFFPC_ITS ---
Vital Signs 09/21/24 16:04 Height 5 ft Weight 235 lb BMI 45.9 BP 130/72 Blood Pressure Location Lt brachial Position Sitting Pulse 61 Pulse Source Pulse Oximeter Pulse Oximetry (%) 96 Oxygen Delivery Method Room Air Intake Visit Reasons: establish care Intake Note: Patient is a new patient here to establish care for Asthma, Eczema, Anxiety, Depression, Gastritis. Transferring care from [facility]. Medical records have been requested and have not received. Associate Professor Of Archaeology Required: No Birthing Nurse: Not Required per policy Accompanied by: Self / Same As Patient Allergies No Known Allergies [No Known Allergies*] Allergy (Verified 09/21/24 16:17) Medication List - Last Reconciled 09/21/24 by Dora Avila PA-C albuterol sulfate 90 mcg/actuation 1 inh inhalation QID fluticasone propion-salmeterol 100-50 mcg/dose (Advair Diskus) 1 inh inhalation BID fluticasone propionate 50 mcg/actuation (Flonase Allergy Relief) 1 spray intranasal BID ibuprofen 600 mg PO Q8H PRN loratadine 10 mg PO DAILY PRN norethindrone (contraceptive) 0.35 mg PO DAILY pantoprazole (Protonix) 40 mg PO DAILY Tobacco use date assessed: 09/21/24 Dental Screening Dental Screen Date: 09/07/24 [facility] establish care HPI Details 24-year-old female with past medical his tory of asthma coming in to establish care. At her last visit patient was started on Advair Diskus for better management of her asthma. pap smear: November 2024 Presenting with symptoms of depression and anxiety. She reports that sertraline at 150 mg was ineffective and may have worsened her mood. Previous use of hydroxyzine for anxiety resulted in excessive sedation, unsuitable due to her responsibilities with young children. The patient indicates increased anxiety and depression due to current stressors, including a divorce and previous depression. Counseling has been recommended, and a referral to [facility] was discussed. Consideration was given to bupropion, which is less likely to cause weight gain. For migraines, sumatriptan at the previous lowest dose was ineffective and caused grogginess, while migraines have become more frequent since her , sometimes lasting a week. Sleep issues persist, and she's apprehensive about medications like melatonin. [facility] Medical History Asthma Surgical History History of 2 sections Family History Mother No problems noted. Father No problems noted. Daughter No problems noted. Son No problems noted. Sister No problems noted. Sister No problems noted. Sister No problems noted. 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 1. Little interest or pleasure in doing things: several days 2. Feeling down, depressed, or hopeless: more than half the days 3. Trouble falling or staying asleep, or sleeping too much: nearly every day 4. Feeling tired or having little energy: several days 5. Poor appetite or overeating: nearly every day 6. Feeling bad about yourself - or that you are a failure or have let yourself or your family down: several days 7. Trouble concentrating on things, such as reading the newspaper or watching television: not at all 8. Moving or speaking so slowly that other people could have noticed. Or the opposite - being so fidgety or restless that you have been moving around a lot more than usual: not at all 9. Thoughts that you would be better off or of hurting yourself in some way: not at all Total score: 11 Depression Screening Interpretation: Positive Depression Screening Follow-up: Existing condition and New Medication prescribed Depression Screening Done: Yes Source: Developed by Drs. Nick Murrell, Jerica Barroso, Jacinto Olson and colleagues, with an educational aide from [employer]. Thrive Questionnaire Date Thrive assessed: 09/14/24 I am a: Patient What is your living situation today?: I have a steady place to live Within the past 12 months, did the food you bought not last and you didn't have the money to get more?: Never true Within the past 12 months, did you worry whether your food would run out before you got money to buy more?: Never true Do you have trouble paying for medicines?: No Do you have trouble getting transportation to medical appointments?: No Do you have trouble paying your heating and electricity bill?: No Do you have trouble taking care of your child, family member or friend?: No Do you have trouble with day-to-day activities such as bathing, preparing meals, shopping, managing finances, etc.?: No Are you currently unemployed and looking for a job?: No Are you interested in more education?: No Please select the resources that you would like help with: None Currently or been in a relationship where the following occur: No concerns reported THRIVE Score: 0 AUDIT C Alcohol Use Questionnaire (AUDIT-C) 1. How often do you have a drink containing alcohol?: 2-4 times a month 2. How many drinks containing alcohol do you have on a typical day when you are drinking?: 1 or 2 3. How often do you have six or more drinks on one occasion?: Less than monthly Total Score: 3 DOT-7 AMB Questionnaire DOT-7 Date DOT - 7 assessed: 09/21/24 Feeling nervous, anxious, or on edge: 1 = Several days Not being able to stop or control worryin = More than half the days Worrying too much about different things: 2 = More than half the days Trouble relaxin = More than half the days Being so restless that it is hard to sit still: 1 = Several days Becoming easily annoyed or irritable: 0 = Not at all Feeling afraid as if something awful might happen: 0 = Not at all Total DOT-7 score (0-4 normal; 5-9 mild; 10-14 moderate; 15-21 severe): 8 Source: Developed by Drs. Nick Murrell, Jerica Barroso, Jacinto Olson and colleagues, with an educational aide from [employer]. Review of Systems Const Denies body aches, Denies chills, Denies fever(s), Reports headache(s) and Denies poor appetite Eyes Reports no additional complaints ENT Denies dizziness and Reports headache(s) Card Denies chest pain, Denies lightheadedness and Denies dyspnea Resp Denies cough and Denies dyspnea GI Denies abdominal pain, Denies constipation, Denies diarrhea, Denies nausea and Denies vomiting Reports no additional complaints Musc Reports no additional complaints and Denies abnormal gait Skin/Breast Reports system reviewed and no additional complaints, except as documented Neuro Denies abnormal gait, Denies dizziness and Reports headache(s) Psych Reports no additional complaints Physical exam (Primary Care) Vital Signs: Last Vital Signs Pulse 61 09/21/24 16:04 BP 130/72 09/21/24 16:04 Pulse Ox 96 09/21/24 16:04 Oxygen Delivery Method Room Air 09/21/24 16:04 BMI result Body Mass Index 45.9 Tobacco/Smoking Status: Tobacco use Status Tobacco use date assessed 09/21/24 09/21/24 16:10 Patient Tobacco Use Status Never used Tobacco 09/21/24 16:10 Tobacco use type Cigarette 09/21/24 16:10 e-Cigarette/Vaping Use Never Used 09/21/24 16:10 PHQ-9: PHQ-9 Score PHQ-9: Total score 11 09/21/24 16:21 Depression Screening Interpretation: Positive Depression Screening Follow-up: Existing condition and New Medication prescribed Thrive Assessment: Date of Thrive Assessment Date Thrive assessed 09/14/24 09/21/24 16:10 Currently or been in a relationship where the following occur: No concerns reported Const General: cooperative, healthy appearing, comfortable and no acute distress Orientation/consciousness: patient oriented x3 HENNJ Head: Yes normocephalic Ears: hearing grossly normal bilaterally General nose exam: Normal external nose present Eyes General: appearance normal, both eyes and all related structures Conjunctivae: conjunctivae normal Neck Neck: Yes full ROM and Yes no lymphadenopathy Resp Effort & Inspection: normal respiratory effort Auscultation: clear to auscultation bilaterally, no crackles, no rales, no rhonchi and no wheezes Cardio Rate: regular rate Rhythm: regular rhythm Skin General skin exam: no rashes or lesions noted Neuro General: patient oriented x3 Gait exam (Neuro): Normal gait present Extrem General: Yes normal to inspection, Yes full ROM and No edema Psych Affect: normal affect Attitude: cooperative Insight: Good insight present (Psych) Judgement: Good judgement present (Psych) Coding Level of Care Code New Pt Level 4 (71139) Diagnoses Asthma J45.909 Anxiety F41.9 Depression F32.A Abnormal menses N92.6 Migraine G43.909 Insomnia G47.00 GERD (gastroesophageal reflux disease) K21.9 Assessment & Plan Assessment & Plan (1) Asthma: Code(s): J45.909 - Unspecified asthma, uncomplicated Category: Medical Plan: Asthma currently controlled on present medications. Continue on inhalers.? Avoid triggers such as allergies. (2) Anxiety: Code(s): F41.9 - Anxiety disorder, unspecified Category: Medical Plan: Patient endorsing feelings of anxiety and depression we discussed different treatment options including SSRIs, SNRIs and Wellbutrin. She would like to avoid medications that would potentially cause weight gain. Plan to started on Wellbutrin 100 mg twice daily. Discussed side effects of this medication advised to reach out if patient develops any side effects plan to follow up in 2 months. (3) Depression: Code(s): F32.A - Depression, unspecified Category: Medical Plan: See above (4) Abnormal menses: Code(s): N92.6 - Irregular menstruation, unspecified Category: Medical Plan: Patient recently started on control and is noted abnormal menses however there is a concern for . Ordered for serum hCG (5) Migraine: Code(s): G43.909 - Migraine, unspecified, not intractable, without status migrainosus Category: Medical Plan: Patient having history of migraines has used Sumatriptan in the past and had felt groggy on this medication. Plan to utilize Rizatriptan as needed and referral was placed to neurology at patient request. (6) Insomnia: Code(s): G47.00 - Insomnia, unspecified Category: Medical Plan: She endorses difficulty sleeping at night but is weary of trying medication as she does have small children and does not want to be oversedated. Recommend the use of OTC Melatonin or magnesium for sleep. (7) GERD (gastroesophageal reflux disease): Code(s): K21.9 - Gastro-esophageal reflux disease without esophagitis Category: Medical Plan: Avoid trigger foods such as citrus, tomato products, soda, caffeine, spicy foods and other foods that may be irritating to your stomach. Avoid laying flat 3-4 hours after eating and elevate the head of the bed 30 degrees to prevent acid from moving into the esophagus. Continue on Pantoprazole 20 Plan Considering the concerns of major depression unresponsive to sertraline with weight gain and anxiety overlap, I discussed switching to bupropion due to its efficacy and suitable side effect profile. Counseling was recommended through [facility]. For migraine management, rizatriptan was proposed due to issues experienced with sumatriptan, instructing a trial during a non-workday. Magnesium [id number] was suggested to improve sleep, considering her need for alertness to care for children. Resuming pantoprazole for GERD management was preferred along with dietary modifications. Blood testing is vital for excluding amid irregular menstrual cycles, influenced by control. The scheduled Pap smear in November and comprehensive STD screening were emphasized for overall reproductive health reassurance. A follow-up in one month will monitor treatment response and review workup results. This note was constructed using voice recognition software. While every effort has been made to ensure accuracy and electrical integrator, still areas may have been included sometimes these areas may affect the content or meeting of the given symptoms. Total time spent caring for the patient today was 30 minutes. This includes time spent before the visit reviewing the chart, time spent during the visit, and time spent after the visit and documentation. Patient was informed and verbally consented to the use of an ambient scribe for clinic note documentation during this visit. Orders: Orders Complete Blood Count Auto Diff 09/21/24 Z00.00 - Encounter for general adult medical examination without abnormal findings Vitamin B12 and Folate 09/21/24 Z. - Encounter for general adult medical examination without abnormal findings Vitamin D 25-OH Total 09/21/24. - Encounter for general adult medical examination without abnormal findings TSH reflex Free T4 09/21/24 Z00. - Encounter for general adult medical examination without abnormal findings Lipid Panel 09/21/24 Z13.220 - Encounter for screening for lipoid disorders Comprehensive Met. Panel 09/21/24. - Encounter for general adult medical examination without abnormal findings Free T4 (Free Thyroxine) 09/21/24 Z. - Encounter for general adult medical examination without abnormal findings CT NG by PCR 09/21/24 Z00. - Encounter for general adult medical examination without abnormal findings HCG Quantitative 09/21/24 N92.6 - Irregular menstruation, unspecified Referrals Counseling Referral F32.A - Depression, unspecified, F41.9 - Anxiety disorder, unspecified Neurology Referral G43.909 - Migraine, unspecified, not intractable, without status migrainosus Medications: New bupropion HCl 100 mg PO BID 60 tabs 2RF rizatriptan take 1 tablet at onset of headache; if no relief, may repeat 1 tablet after at least 2 hrs PO 14 tabs 0RF pantoprazole 20 mg PO DAILY 90 tabs 0RF Refilled loratadine 10 mg PO DAILY PRN 20 tabs 0RF allergy symptoms fluticasone propionate 50 mcg/actuation (Flonase Allergy Relief) administer into each nostril 1 spray intranasal BID 16 grams 0RF
[2024-09-21 16:04] VITALS: BP 130/72; PULSE 61; O2SAT 96; BMI 45.9
--- OUTSIDE RECORDS SUMMARY | 2024-09-21 18:25 | XMS_ITS | Clinical Summary ---
Author Organization 175 [facility] Address [address] [place] [address] Phone Care Team Providers Care Jewelry Drill Operator Name Role Phone Martina Lou Primary Care [...] Eczema 12/15/2017 Overview (03/16/2024): Uses ointment daily. Immunizations Name Administration Dates Next Due HPV 9-valent (Gardisil) 9yo to less than 46yo 06/29/2019 Influenza Quadravalent, MDCK , 0.5ml, preservative free (Flucelvax) 6mo and older 03/12/2023,05/09/2019,03/09/2018 PPD Test 06/29/2019,05/09/2019 [employer] SARS-CoV-2 COVID-19, mRNA, LNP-S, preservative free 08/28/2020 [...] EDT Office Visit Obstetrics and Gynecology - [address] [phone] Rolly Grijalva, [facility] [address] [place] [phone] Health Maintenance Due Date Last Done Comments Pneumococcal Vaccine: Pediatrics (0 to 5 Years) and At-Risk Patients (6 to 64 Years) (1 of 1 - PPSV23) 2004 03/03/2000, 01/02/2000 Social Influencers of Health Screening 05/08/2022 Depression Screening 02/03/2023 02/03/2022 COVID-19 Vaccine ( season) 2024 10/19/2020, 09/28/2020, 08/28/2020 Influenza Vaccine (Season Ended) 2025 03/12/2023, 05/09/2019, 03/09/2018, Additional history exists Cholesterol Screening [...] Procedure Name Priority Date/Time Associated Diagnosis Comments PAP SMEAR Routine 09/28/2023 GONORRHEA/CHLAMYDIA SCRREENING Routine 02/11/2023 HEPATITIS C SCREENING Routine 02/03/2023 HIV SCREENING Routine 02/03/2023 DEPRESSION SCREENING Routine 02/03/2022 LIPID PANEL Routine 06/19/2021 from Last 3 Months or Most Recently Relevant to Health Maintenance Results * Pap smear (09/28/2023) 09/28/2023 Narrative HISTORICAL TESTING LAB RESULTING AGENCY - 10/02/2023 6:21 AM EDT [id number] THINPREP PAP, IMAGED: NEGATIVE FOR SQUAMOUS INTRAEPITHELIAL LESION AND MALIGNANCY MAGDALENO COBB , LETICIA(ASCP) (CASE ELECTRONICALLY SIGNED 10 01 2023) ADEQUACY: SATISFACTORY ENDOCERVICAL/TRANSFORMATION ZONE COMPONENT ABSENT. SOURCE: THINPREP PAP HPV IF ASCUS, CERVICAL, IMAGED CLINICAL INFORMATION: HPV IF DIAGNOSIS OF ASCUS. POST , PAP HX NEGATIVE IN 2020, LMP 11/17/22, [Z12.4] Result [facility] Rolly Grijalva CNM LAB CYTOLOGY ORDERABLES Final Result HISTORICAL TESTING LAB RESULTING AGENCY * Gonorrhea/Chlamydia Screening (02/11/2023) Pathologist [facility] Gonorrhea/Chla mydia Screening abstracted Result [facility] Provider HEALTH MAINTENANCE Final Result * HIV Screening (02/03/2023) [facility] HIV Screening abstracted [facility] Provider HEALTH MAINTENANCE Final Result * Hepatitis C Screening (02/03/2023) [facility] Hepatitis C Screening abstracted [facility] Provider HEALTH MAINTENANCE Final Result * Depression Screening (02/03/2022) [facility] Depression Screening abstracted Result [facility] Provider HEALTH MAINTENANCE Final Result * (ABNORMAL) Lipid panel (06/19/2021) [facility] LDL/HDL Ratio 4 0 - 4 Triglycerides 108 0 - 150 mg/dL Cholesterol 154 0 - 200 mg/dL HDL 39(A) >=40 mg/dL LDL Cholesterol 94 0 - 100 mg/dL Blood Venous blood specimen / Unknown Result [facility] Historical Provider LAB BLOOD ORDERABLES Nicolle l Result from Last 3 Months or Most Recently Relevant to Health Maintenance Insurance [place] - [place] [facility] Care Teams Jewelry Drill Operator Relationship Specialty Start Date End Date Martina Lou PA 175 [facility] [address] [place] [address] PCP - General Internal Medicine 05/15/21
== END 2024-09-21 16:40 | disposition home or self-care (01) ==
LOC: HO.HMCH 15:57
PROVIDERS: PCP Physician Assistant
DX: J45.909 Unspecified asthma, uncomplicated (principal); F41.9 Anxiety disorder, unspecified; F32.A Depression, unspecified; N92.6 Irregular menstruation, unspecified; G43.909 Migraine, unspecified, not intractable, without status migrainosus; G47.00 Insomnia, unspecified; K21.9 Gastro-esophageal reflux disease without esophagitis

== ENCOUNTER → 2024-09-21 15:56 | Outpatient (BNVA) | payer OTHER, SELFPAY | PROVIDERS: PCP Physician Assistant ==

== ENCOUNTER 2024-09-22 09:34 | Outpatient (REF) | payer OTHER, SELFPAY ==
[2024-09-22 09:45] LABS: MANUAL DIFF FLAG NO
--- OUTSIDE RECORDS SUMMARY | 2024-09-22 10:34 | XMS_ITS | Clinical Summary ---
Author Organization [facility] Address [address] [place] [address] Phone Care Team Providers Care Material Handler Name Role Phone Martina Lou Primary Care [...] 6mo and older 03/12/2023,05/09/2019,03/09/2018 PPD Test 06/29/2019,05/09/2019 [employer] SARS-CoV-2 COVID-19, mRNA, LNP-S, preservative free 08/28/2020 [...] EDT Office Visit Obstetrics and Gynecology - [address] [id number] Rolly Grijalva, [facility] [address] [place] [id number] Health Maintenance Due Date Last Done Comments [...] RESULTING AGENCY - 10/02/2023 6:21 AM EDT [id number] THINPREP PAP, IMAGED: NEGATIVE FOR SQUAMOUS INTRAEPITHELIAL LESION AND MALIGNANCY MAGDALENO COBB , LETICIA(ASCP) (CASE ELECTRONICALLY SIGNED 10 01 2023) ADEQUACY: SATISFACTORY ENDOCERVICAL/TRANSFORMATION ZONE COMPONENT ABSENT. SOURCE: THINPREP PAP HPV IF ASCUS, CERVICAL, IMAGED CLINICAL INFORMATION: HPV IF DIAGNOSIS OF ASCUS. POST , PAP HX NEGATIVE IN 2020, LMP 11/17/22, [Z12.4] Result [facility] Rolly Grijalva CNM LAB CYTOLOGY ORDERABLES Final Result HISTORICAL TESTING LAB RESULTING AGENCY * Gonorrhea/Chlamydia Screening (02/11/2023) Pathologist [facility] Gonorrhea/Chla mydia Screening abstracted Result [facility] Provider HEALTH MAINTENANCE Final Result * HIV Screening (02/03/2023) [facility] HIV Screening abstracted [facility] Provider HEALTH MAINTENANCE Final Result * Hepatitis C Screening (02/03/2023) [facility] Hepatitis C Screening abstracted [facility] Provider HEALTH MAINTENANCE Final Result * Depression Screening (02/03/2022) [facility] Depression Screening abstracted Result [facility] Provider HEALTH MAINTENANCE Final Result * (ABNORMAL) Lipid panel (06/19/2021) [facility] LDL/HDL Ratio 4 0 - 4 Triglycerides 108 0 - 150 mg/dL Cholesterol 154 0 - 200 mg/dL HDL 39(A) >=40 mg/dL LDL Cholesterol 94 0 - 100 mg/dL Blood Venous blood specimen / Unknown Result [facility] Historical Provider LAB BLOOD ORDERABLES Nicolle l Result from Last 3 Months or Most Recently Relevant to Health Maintenance Insurance [place]ICA[place] - [place] [facility] Care Teams Material Handler Relationship Specialty Start Date End Date Martina Lou PA [address] [facility] [address] [place] [address] PCP - General Internal Medicine 05/15/21
[2024-09-22 10:43] LABS: Basophils Percent Auto 0.4 % (0-2); Eosinophils Absolute Auto 0.1 X10*3/uL (0.0-0.4); Eosinophils Percent Auto 1.2 % (0-4); Hematocrit 39.4 % (37.0-47.0); Hemoglobin 13.1 g/dl (12.0-16.0); Imm Gran Abs Auto 0.02 X10*3/uL (0.00-0.03); Imm Gran Pct Auto 0.4 % (0.0-0.4); Lymphocytes Absolute Auto 2.2 X10*3/uL (1.2-4.9); Lymphocytes Percent Auto 39.7 % (20-40); Mean Corpuscular HGB Conc 33.2 g/dl (31.0-35.0); Mean Corpuscular Hemoglobin 30.3 pg (27.0-33.0); Mean Platelet Volume 10.2 fL (9.4-12.3); Monocytes Absolute Auto 0.4 X10*3/uL (0.1-1.2); Monocytes Percent Auto 6.6 % (2-11); Neutrophils Absolute Auto 2.9 x10*3/uL (2.0-8.3); Neutrophils Percent Auto 51.7 % (45-73); Platelet Count 275 X10*3/uL (160-400); Red Blood Count 4.33 X10*6/uL (4.20-5.50); Red Cell Distribution Width 13.2 % (11.0-16.0); White Blood Count 5.6 X10*3/uL (4.8-10.8)
[2024-09-22 11:38] LABS: Alanine Aminotransferase 32 U/L (0-31); Albumin Level 4.2 g/dL (3.5-5.0); Alkaline Phosphatase 69 U/L (39-117); Anion Gap 8 (12-20); Aspartate Amino Transferase 20 U/L (5-31); Bilirubin Total 0.5 mg/dL (0.0-1.0); Blood Urea Nitrogen 8 mg/dL (9-16); Calcium 9.3 mg/dL (8.4-10.2); Carbon Dioxide 28 mmol/L (22-29); Chloride 108 mmol/L (96-108); Cholesterol 163 mg/dL (<200); Estimated Glomerular Filt Rate > 60; Glucose Random 90 mg/dL (60-115); HDL Cholesterol 30 mg/dL (>40); LDL Cholesterol Calculated 113 mg/dL (<100); Potassium 4.4 mmol/L (3.3-5.1); Sodium 140 mmol/L (135-145); Total Protein 7.5 g/dL (6.5-8.0); Triglycerides 102 mg/dL (<150)
[2024-09-22 11:41] LABS: Free T4 (Free Thyroxine) 1.29 ng/dL (0.71-1.85); HCG Quantitative < 2 mIU/mL; TSH reflex Free T4 0.37 uIU/mL (0.32-4.0)
[2024-09-22 11:48] LABS: Folate 5.5 ng/mL (> or = 4.0); Vitamin B12 378 pg/mL (200-900)
== END 2024-09-22 09:35 | disposition home or self-care (01) ==
LOC: HO.LAB 09:34
DX: Z00.00 Encounter for general adult medical examination without abnormal findings (principal); N92.6 Irregular menstruation, unspecified; Z13.220 Encounter for screening for lipoid disorders
CPT/HCPCS: 36415; 80053; 80061; 82306; 82607; 82746; 84439; 84443; 84702; 85025

== ENCOUNTER 2024-10-29 11:23 | Emergency (ER) | payer OTHER, SELFPAY ==
--- NOTE | 2024-10-29 11:35 | ED.GENADULT ---
HPI - General Adult General Chief complaint: Urogenital-Female Stated complaint: abdominal pain Time Seen by Provider: 10/29/24 12:17 Source: patient Mode of arrival: ambulatory Limitations: no limitations History of Present Illness ED Provider: Leslye Schultz PA-C HPI narrative: Patient is a 24 year old assigned female at with a history of eczema, anxiety, depression, GERD, insomnia, and frequent UTIs presenting to the emergency department today with lower abdominal pressure and pain with urination. Patient states that over the last few days she has had suprapubic pressure and pain with urination. Patient denies any dizziness, lightheadedness, nausea, vomiting, fever, chills, blurry vision, double vision, loss of vision, chest pain, difficulty breathing, shortness of breath, back pain, night sweats, increased urinary frequency, increased urinary urgency, blood in her urine or stool, syncope or a near syncopal episode, recent trauma or falls, bowel incontinence, bladder incontinence, or any other complaints at this time. Onset (ago): day(s) (3) Relieving factors: none Exacerbating factors: none Treatments prior to arrival: none Related Data Home Medications ?Medication ?Instructions ?Recorded ?Confirmed norethindrone (contraceptive) 0.35 0.35 mg PO DAILY 09/21/24 09/21/24 mg tablet Previous Rx's ?Medication ?Instructions ?Recorded ibuprofen 600 mg tablet 600 mg PO Q8H PRN pain #20 tabs 03/02/21 albuterol sulfate 90 mcg/actuation 1 inh inhalation QID #8.5 grams 09/07/24 aerosol inhaler fluticasone 100 mcg-salmeterol 50 1 inh inhalation BID #60 ea 09/07/24 mcg/dose blistr powdr for inhalation (Advair Diskus) bupropion HCl 100 mg tablet 100 mg PO BID #60 tabs 09/21/24 fluticasone propionate 50 1 spray intranasal BID #16 grams 09/21/24 mcg/actuation nasal spray,suspension (Flonase Allergy Relief) loratadine 10 mg tablet 10 mg PO DAILY PRN allergy 09/21/24 symptoms #20 tabs pantoprazole 20 mg tablet,delayed 20 mg PO DAILY #90 tabs 09/21/24 release rizatriptan 5 mg tablet See Rx Instructions PO .COMPLEX 09/21/24 #14 tabs fluconazole 150 mg tablet 150 mg PO ONCE 1 day #1 tab 09/23/24 cefuroxime axetil 250 mg tablet 250 mg PO BID 7 days #14 tabs 10/29/24 Allergies Allergy/AdvReac Type Severity Reaction Status Date / Time No Known Allergies Allergy Verified 10/29/24 11:36 [No Known Allergies*] Review of Systems Constitutional: Constitutional: Reports no additional constitutional complaints, Denies chills, Denies fever(s) and Denies night sweats Eyes: Eyes: Reports no additional eye complaints, Denies blurry vision, Denies change in vision, Denies diplopia, Denies eye discharge, Denies loss of vision and Denies eye pain ENT: Denies dizziness Cardiovascular: Cardiovascular: Reports no additional cardiovascular complaints, Denies chest pain, Denies lightheadedness, Denies Loss of Consciousness and Denies dyspnea Respiratory: Respiratory: Reports no additional respiratory complaints and Denies dyspnea Gastrointestinal: Gastrointestinal: Reports no additional gastrointestinal complaints, Denies melena, Denies hematochezia, Denies change in bowel habits and Denies change in stool character Comments: suprapubic pressure Genitourinary: Genitourinary: Denies hematuria, Denies urinary frequency, Reports dysuria, Denies urinary incontinence, Denies urinary hesitancy and Denies urinary urgency Musculoskeletal: Musculoskeletal: Reports no additional musculoskeletal complaints, Denies numbness and Denies tingling Neurologic: Denies dizziness, Denies loss of vision, Denies numbness and Denies tingling Psychiatric: Psychiatric: Reports no additional psychiatric complaints Endocrine: Endocrine: Reports no additional endocrine complaints Hematologic/Lymphatic: Hematologic/Lymphatic: Reports no additional hematologic/lymphatic complaints Allergic/Immunologic: Allergic/Immunologic: Reports no additional allergic/immunologic complaints [facility] Past Medical History Attestation statement: The following information was validated with the patient. Source: old records reviewed and nursing notes reviewed Medical History Asthma Surgical History History of 2 sections Family History Family History Mother No problems noted. Father No problems noted. Daughter No problems noted. Son No problems noted. Sister No problems noted. Sister No problems noted. Sister No problems noted. 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 Current occupational exposures/hazards: No Cognitive needs: No Hearing needs: No Vision needs: Yes (Glasses) Physical Exam ED Vital Signs: Vital Signs - 24 hr 10/29/24 11:36 Temperature 97.3 F Pulse Rate 71 Respiratory Rate 16 Blood Pressure 124/71 Pulse Oximetry 99 Oxygen Delivery Method Room Air BMI result Body Mass Index 40.0 Const General: cooperative, no acute distress, alert and awake Nutritional Appearance: well nourished Orientation/consciousness: patient oriented x3 HENMT Head: Yes normal to inspection and Yes atraumatic Ears: hearing grossly normal bilaterally and external ears normal General nose exam: Normal external nose present, no nasal discharge noted and no epistaxis Face and sinus: Yes normal facial exam, No abrasion and No laceration Mouth: Normal oral and palatal mucosa present, no drooling and no muffled voice Eyes General: appearance normal, both eyes and all related structures Periorbital: periorbital findings normal Eyelids: Yes eyelids normal Conjunctivae: conjunctivae normal Pupils: Equal, round and reactive pupils present EOM: EOMs intact bilaterally Neck Neck: Yes normal visual inspection, Yes full ROM and Yes no lymphadenopathy Resp Effort & Inspection: normal respiratory effort and able to speak in complete sentences Neuro General: patient oriented x3, moves all extremities and CN's II-XI intact bilaterally Cranial nerves: Yes Equal, round and reactive pupils present Cognition (Neuro): normal cognition Extrem General: Yes normal to inspection, Yes full ROM and Yes capillary refill normal Psych Appearance: grossly normal Mental Status: mental status grossly normal Affect: normal affect Attitude: cooperative Thought process: Normal thought process present Thought content: Normal thought content present Insight: Good insight present (Psych) Course Course Course Narrative: RME performed by Leslye Schultz PA-C. Patient is a 24 year old assigned female at presenting to the emergency department with pain with urination / pressure in her abdomen. Patient states that she has a history of UTIs and is concerned she has another one. Detailed physical exam and review of systems are deferred to the donkey ride operator. UA ordered. Patient placed back in the waiting room pending room availability and results. Medical Decision Making Medical Decision Making [facility] Narrative: Patient is a 24 year old assigned female at with a history of eczema, anxiety, depression, GERD, insomnia, and frequent UTIs presenting to the emergency department today with lower abdominal pressure and pain with urination. Patient's physical exam was unremarkable. Patient's urine showed evidence of infection. I explained my physical exam findings as well as all test results to the patient. I answered all questions asked by the patient. I stressed the importance of the patient taking her medication as directed (either prescribed or as the over the counter packaging recommends). I stressed the importance of the patient following up with her primary care provider. I stressed the importance of the patient returning to the emergency department immediately if her symptoms were to worsen or if she were to develop any dizziness, shortness of breath, difficulty breathing, chest pain, blurry vision, loss of vision, nausea, vomiting, abdominal pain, fever, chills, back pain, or any other complaints. Patient verbalized agreement and understanding with this treatment plan and discharge. Differential Diagnosis Differential Diagnoses: The differential diagnosis associated with the presentation includes UTI Admission/Observation Consideration of admission/observation: Escalation of care including admission/observation considered Patient would have been admitted to the hospital had her work up had any findings where hospital admission was appropriate and her clinical presentation warranted hospital admission. Lab Data [facility] Lab Attestation statement: I reviewed the patient's lab results. My interpretation of these results are in the [facility] Rationale portion of this note. Labs: Lab Results 10/29/24 Range/Units 11:46 Urine Color Dark Yellow Urine Appearance Cloudy Urine pH 6.5 (5.0-9.0) Ur Specific Dari[place] 1.020 (1.005-1.025) Urine Protein 100 (2+) H (Neg-Trace) mg/dL Urine Glucose (UA) Negative (Negative) mg/dL Urine Ketones 15 (Negative) mg/dL Urine Blood Large (3+) H (Negative) Urine Nitrite Positive H (Negative) Ur Leukocyte Esterase Large (3+) H (Negative) Urine RBC >20 H (0-2) /HPF Urine WBC >50 H (0-5) /HPF Ur Squamous Epith Cells 6-10 (0-2) /HPF Urine Bacteria 4+ (None Seen) Hyaline Casts 0-2 (0-2) /LPF Prescription Management I considered prescription management with: Antibiotic (patient prescribed antibiotic for UTI) Discharge Plan Discharge Clinical Impression: UTI (urinary tract infection) Patient Disposition: Home, Self-Care Instructions: Urinary Tract Infection in Women (DC) Additional Instructions: Your urine sample showed evidence of UTI. Take your antibiotic as prescribed - with food. If you are on oral control, the antibiotic may effect the controls effectiveness, please consider an addiitonal form of contraception such as a condom, while on it. Follow up with your primary care provider. Return to the emergency department immediately if your symptoms worsen or if you develop any numbness, tingling, dizziness, shortness of breath, difficulty breathing, chest pain, blurry vision, loss of vision, nausea, vomiting, abdominal pain, fever, chills, back pain, or any other complaints. Please see the information below about our Patient Portal. If you are not yet enrolled in the [facility] Patient Portal, you will receive an enrollment email invitation following your visit to any [facility] care setting. You may also self-enroll in the Patient Portal by visiting our website: [email or web address] The following information is required to access the Patient Portal: - Your [facility] Medical Record Number - Your personal home email address (must match what is in your electronic medical record, Registration staff can assist with this) - Name - Date of Capabilities of the Patient Portal: - Message some providers - View upcoming appointments - Access your health summary, medical history, and visit history - View current conditions and allergies - View procedure and lab results - View your medications, including guidelines, side effects, and precautions - Complete pre-appointment questionnaires requested by your provider - Ready summary reports of your office visits and procedures To access the Patient Portal Mobile Greg, follow these directions: - Search [employer] in the Greg Store or Joshfire Store - Download the Greg - Search for [facility] - Enter your login/password Prescriptions: New cefuroxime axetil 250 mg tablet 250 mg PO BID 7 Days Qty: 14 0RF No Action fluconazole 150 mg tablet 150 mg PO ONCE 1 Days Qty: 1 0RF ibuprofen 600 mg tablet 600 mg PO Q8H PRN (Reason: pain) Qty: 20 0RF loratadine 10 mg tablet 10 mg PO DAILY PRN (Reason: allergy symptoms) Qty: 20 0RF fluticasone propionate [Flonase Allergy Relief] 50 mcg/actuation spray,suspension 1 spray intranasal BID Qty: 16 0RF Rx Instructions: administer into each nostril norethindrone (contraceptive) 0.35 mg tablet 0.35 mg PO DAILY bupropion HCl 100 mg tablet 100 mg PO BID Qty: 60 2RF rizatriptan 5 mg tablet See Rx Instructions PO .COMPLEX Qty: 14 0RF Rx Instructions: take 1 tablet at onset of headache; if no relief, may repeat 1 tablet after at least 2 hrs PO pantoprazole 20 mg tablet,delayed release (DR/EC) 20 mg PO DAILY Qty: 90 0RF albuterol sulfate 90 mcg/actuation HFA aerosol inhaler 1 inh inhalation QID Qty: 8.5 0RF fluticasone propion-salmeterol [Advair Diskus] 100-50 mcg/dose blister with device 1 inh inhalation BID Qty: 60 0RF Referrals: [facility] Family Medicine [Provider Group] (Call to establish and follow up with a primary care provider. If you already have a primary care provider, please follow up with them.) [facility] Primary Care, Adolfo [Provider Group] (Call to establish and follow up with a primary care provider. If you already have a primary care provider, please follow up with them.) [facility] Primary Care, Felipe [Provider Group] (Call to establish and follow up with a primary care provider. If you already have a primary care provider, please follow up with them.) [facility] Primary Care, VANESA [Provider Group] (Call to establish and follow up with a primary care provider. If you already have a primary care provider, please follow up with them.) [facility] Primary CareJavier [Provider Group] (Call to establish and follow up with a primary care provider. If you already have a primary care provider, please follow up with them.) Print Language: Zambian
[2024-10-29 11:36] VITALS: BP 124/71; PULSE 71; RESP 16; TEMP 36.3; O2SAT 99; BMI 40.0
[2024-10-29 11:56] LABS: Appearance Urine Cloudy; Color Urine Dark Yellow; Glucose Urine UA Negative (Negative); Leukocyte Esterase Urine Large (3+) (Negative); Nitrite Urine Positive (Negative); PH 6.5 (5.0-9.0); UMIC TRIGGER UACC YES; Urine Blood Large (3+) (Negative); Urine Ketones 15 mg/dL (Negative); Urine Protein 100 (2+) mg/dL (Neg-Trace)
[2024-10-29 11:58] LABS: Bacteria Urine 4+ (None Seen); Hyaline Casts Urine 0-2 /LPF (0-2); RBC Urine >20 /HPF (0-2); UACC Culture Trigger YES; WBC Urine >50 /HPF (0-5)
[2024-10-29 12:35] VITALS: BP 124/71; PULSE 71; RESP 16; TEMP 36.3; O2SAT 99
== END 2024-10-29 12:35 | disposition home or self-care (01) ==
PROVIDERS: Physician Assistant Medical; Emergency Provider Emergency Medicine
DX: N39.0 Urinary tract infection, site not specified (principal); R10.30 Lower abdominal pain, unspecified; R30.9 Painful micturition, unspecified; L30.9 Dermatitis, unspecified; F41.9 Anxiety disorder, unspecified; F32.A Depression, unspecified; K21.9 Gastro-esophageal reflux disease without esophagitis; G47.00 Insomnia, unspecified; J45.909 Unspecified asthma, uncomplicated; F17.210 Nicotine dependence, cigarettes, uncomplicated; F12.90 Cannabis use, unspecified, uncomplicated; Z79.899 Other long term (current) drug therapy
CPT/HCPCS: 81001; 87086; 87088; 87186; 99282; 99283

== ENCOUNTER 2024-11-02 15:18 | Outpatient (AMB) | payer OTHER, SELFPAY ==
--- NOTE | 2024-11-02 15:19 | A.OFFPC_ITS ---
Vital Signs 11/02/24 15:20 Height 5 ft 3 in Weight 224 lb BMI 39.7 BP 118/70 Blood Pressure Location Lt brachial Position Sitting Pulse 65 Pulse Source Pulse Oximeter Pulse Oximetry (%) 98 Oxygen Delivery Method Room Air Intake Visit Reasons: pe Team Driver Required: No Accompanied by: Self / Same As Patient Allergies No Known Allergies [No Known Allergies*] Allergy (Verified 11/02/24 15:33) Medication List - Last Reconciled 11/02/24 by Dora Avila PA-C albuterol sulfate 90 mcg/actuation 1 inh inhalation QID bupropion HCl 100 mg PO BID cefuroxime axetil 250 mg PO BID 7 days fluconazole 150 mg PO ONCE 1 day fluticasone propion-salmeterol 100-50 mcg/dose (Advair Diskus) 1 inh inhalation BID fluticasone propionate 50 mcg/actuation (Flonase Allergy Relief) 1 spray intranasal BID ibuprofen 600 mg PO Q8H PRN loratadine 10 mg PO DAILY PRN norethindrone (contraceptive) 0.35 mg PO DAILY pantoprazole 20 mg PO DAILY rizatriptan take 1 tablet at onset of headache; if no relief, may repeat 1 tablet after at least 2 hrs PO Tobacco use date assessed: 11/02/24 Dental Screening Dental Screen Date: 11/02/24 Did you have a dental visit in the last 12 months?: No Did you have a dental problem in the last 6 months where you did not have access to dental care?: No Was dental information given to patient?: No HPI pe HPI Details 24-year-old female with past medical his tory of GERD, asthma, anxiety, depression, migraine and insomnia last seen 08/2024 coming in for annual exam. In review of the notes, patient was recently seen in [facility] 09/2024 for UTI. Presenting with symptoms related to GERD and annual exam. Originally prescribed pantoprazole 20 mg, the dose was increased to 40 mg in light of persistent symptoms including stomach burning and pains. Improvement is noted with the higher dose. Depression management is being pursued with Wellbutrin initiated towards the end of August, taken three times a day. The patient presently observes no notable change in symptoms. The patient is faced with personal stress emerging from marital issues which she perceives to be affecting her mental well-being and potentially the effectiveness of her treatment regimen. Counseling is being utilized on a weekly basis. The patient also reports a deficiency in Vitamin D and slightly elevated liver function tests discovered during previous investigations. [facility] Medical History Asthma Surgical History History of 2 sections Family History Mother No problems noted. Father No problems noted. Daughter No problems noted. Son No problems noted. Sister No problems noted. Sister No problems noted. Sister No problems noted. 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 1. Little interest or pleasure in doing things: several days 2. Feeling down, depressed, or hopeless: more than half the days 3. Trouble falling or staying asleep, or sleeping too much: nearly every day 4. Feeling tired or having little energy: several days 5. Poor appetite or overeating: nearly every day 6. Feeling bad about yourself - or that you are a failure or have let yourself or your family down: several days 7. Trouble concentrating on things, such as reading the newspaper or watching television: not at all 8. Moving or speaking so slowly that other people could have noticed. Or the opposite - being so fidgety or restless that you have been moving around a lot more than usual: not at all 9. Thoughts that you would be better off or of hurting yourself in some way: not at all Total score: 11 Depression Screening Interpretation: Positive Depression Screening Follow-up: Existing condition and In treatment Depression Screening Done: Yes Source: Developed by Drs. Nick Murrell, Jerica Barroso, Jacinto Olson and colleagues, with an educational aide from [employer]. Thrive Questionnaire Date Thrive assessed: 11/02/24 I am a: Patient What is your living situation today?: I have a steady place to live Within the past 12 months, did the food you bought not last and you didn't have the money to get more?: Never true Within the past 12 months, did you worry whether your food would run out before you got money to buy more?: Never true Do you have trouble paying for medicines?: No Do you have trouble getting transportation to medical appointments?: No Do you have trouble paying your heating and electricity bill?: No Do you have trouble taking care of your child, family member or friend?: No Do you have trouble with day-to-day activities such as bathing, preparing meals, shopping, managing finances, etc.?: No Are you currently unemployed and looking for a job?: No Are you interested in more education?: No Please select the resources that you would like help with: None Currently or been in a relationship where the following occur: No concerns reported THRIVE Score: 0 AUDIT C Alcohol Use Questionnaire (AUDIT-C) 1. How often do you have a drink containing alcohol?: 2-4 times a month 2. How many drinks containing alcohol do you have on a typical day when you are drinking?: 1 or 2 3. How often do you have six or more drinks on one occasion?: Less than monthly Total Score: 3 DOT-7 AMB Questionnaire DOT-7 Date DOT - 7 assessed: 11/02/24 Feeling nervous, anxious, or on edge: 1 = Several days Not being able to stop or control worryin = More than half the days Worrying too much about different things: 2 = More than half the days Trouble relaxin = More than half the days Being so restless that it is hard to sit still: 1 = Several days Becoming easily annoyed or irritable: 0 = Not at all Feeling afraid as if something awful might happen: 0 = Not at all Total DOT-7 score (0-4 normal; 5-9 mild; 10-14 moderate; 15-21 severe): 8 Source: Developed by Jerica Watson. Dharmesh, Jacinto Olson and colleagues, with an educational aide from [employer]. Review of Systems Const Denies body aches, Denies fatigue, Denies fever(s), Denies frequent falls, Denies headache(s) and Denies weakness Eyes Reports no additional complaints and Denies change in vision ENT Denies dysphagia, Denies dizziness, Denies facial pain, Denies headache(s), Denies nasal congestion and Denies odynophagia Card Denies chest pain, Denies syncope, Denies irregular heart rhythm, Denies leg edema, Denies lightheadedness and Denies dyspnea Resp Denies cough and Denies dyspnea GI Denies abdominal pain, Denies constipation, Denies dysphagia, Denies dyspepsia, Denies diarrhea, Denies nausea, Denies odynophagia and Denies vomiting Denies urinary frequency, Denies dysuria, Denies urinary hesitancy and Denies urinary urgency Musc Denies back pain and Denies myalgias Skin/Breast Reports system reviewed and no additional complaints, except as documented Neuro Denies dizziness, Denies syncope, Denies frequent falls, Denies headache(s) and Denies weakness Psych Reports no additional complaints Endo Denies fatigue Physical exam (Primary Care) Vital Signs: Last Vital Signs Pulse 65 11/02/24 15:20 BP 118/70 11/02/24 15:20 Pulse Ox 98 11/02/24 15:20 Oxygen Delivery Method Room Air 11/02/24 15:20 BMI result Body Mass Index 39.7 Tobacco/Smoking Status: Tobacco use Status Tobacco use date assessed 11/02/24 11/02/24 15:28 Patient Tobacco Use Status Never used Tobacco 11/02/24 15:28 Tobacco use type Cigarette 11/02/24 15:28 e-Cigarette/Vaping Use Never Used 11/02/24 15:28 PHQ-9: PHQ-9 Score PHQ-9: Total score 11 11/02/24 15:38 Depression Screening Interpretation: Positive Depression Screening Follow-up: Existing condition and In treatment Thrive Assessment: Date of Thrive Assessment Date Thrive assessed 11/02/24 11/02/24 15:28 Currently or been in a relationship where the following occur: No concerns reported Const General: cooperative, healthy appearing, comfortable and no acute distress Orientation/consciousness: patient oriented x3 HENMT Head: Yes normocephalic Ears: hearing grossly normal bilaterally, external ears normal, TM's normal bilaterally and EAC's normal General nose exam: Normal external nose present Face and sinus: Yes normal facial exam and Yes sinuses nontender Mouth: Normal oral and palatal mucosa present and tongue normal Throat: Yes posterior oropharynx normal Eyes General: appearance normal, both eyes and all related structures Conjunctivae: conjunctivae normal Pupils: Equal, round and reactive pupils present EOM: EOMs intact bilaterally and No Nystagmus present Neck Neck: Yes normal visual inspection, Yes full ROM and Yes no lymphadenopathy Chest Chest palpation & inspection: normal inspection of the chest Resp Effort & Inspection: normal respiratory effort Auscultation: clear to auscultation bilaterally, no crackles, no rales, no rhonchi, no wheezes and breath sounds present Cardio Rate: regular rate Rhythm: regular rhythm Peripheral pulses: radial pulses present and dorsalis pedis present GI Inspection: Yes normal to inspection and No Abdominal wall edema Palpation (GI): Soft to palpation, not firm and nontender Auscultation: normal bowel sounds Rectal Exam - Female: deferred General: Yes no CVA tenderness Back/Spine/Pelvis Back: no CVA tenderness Skin General skin exam: no rashes or lesions noted Neuro General: patient oriented x3 Cranial nerves: Yes Equal, round and reactive pupils present, Yes Midline tongue present, Yes Ability to bilaterally elevate shoulders present and No Nystagmus present Gait exam (Neuro): Normal gait present Extrem General: Yes normal to inspection, Yes full ROM, No no pedal edema and No edema Psych Speech and movement: Normal speech and movement present Affect: normal affect Insight: Good insight present (Psych) Judgement: Good judgement present (Psych) Coding Level of Care Code Est Pt Prev Care 18-39y(40141) Diagnoses Annual physical exam Z00.00 GERD (gastroesophageal reflux disease) K21.9 Insomnia G47.00 Migraine G43.909 Depression F32.A Anxiety F41.9 Asthma J45.909 Elevated LFTs R79.89 Obesity (BMI 30-39.9) E66.9 Assessment & Plan Assessment & Plan (1) Annual physical exam: Code(s): Z00.00 - Encounter for general adult medical examination without abnormal findings Category: Medical Plan: Patient is up-to-date on all recommended routine screenings and vaccinations for her age. Blood work was up-to-date and was reviewed with the patient today. Healthy diet and regular exercise is encouraged. (2) GERD (gastroesophageal reflux disease): Code(s): K21.9 - Gastro-esophageal reflux disease without esophagitis Category: Medical Plan: Avoid trigger foods such as citrus, tomato products, soda, caffeine, spicy foods and other foods that may be irritating to your stomach. Avoid laying flat 3-4 hours after eating and elevate the head of the bed 30 degrees to prevent acid from moving into the esophagus. Continue on pantoprazole 40 (3) Insomnia: Code(s): G47.00 - Insomnia, unspecified Category: Medical Plan: Patient is declining asleep medication at this time as she does have a young child and does not want to sleep through any crying. Did advise patient she can try [id number] magnesium or melatonin. (4) Migraine: Code(s): G43.909 - Migraine, unspecified, not intractable, without status migrainosus Category: Medical Plan: Patient having intermittent migraines has not had to use her rizatriptan she has not had migraines since last time we saw her. Continue to use rizatriptan as needed. (5) Depression: Code(s): F32.A - Depression, unspecified Category: Medical Plan: Patient having depression and anxiety affecting her daily life she is currently on Wellbutrin 100 mg 3 times a day she just recently started on this new dose and has not yet found a beneficial. She agrees to continue on this dose for the time being and follow up in 1 month. Continue to follow with counselor as he finds this beneficial. (6) Anxiety: Code(s): F41.9 - Anxiety disorder, unspecified Category: Medical Plan: See above (7) Asthma: Code(s): J45.909 - Unspecified asthma, uncomplicated Category: Medical Plan: Asthma currently controlled on present medications. Continue on Advair twice daily and albuterol as needed. Avoid triggers such as allergies. (8) Elevated LFTs: Code(s): R79.89 - Other specified abnormal findings of blood chemistry Category: Medical Plan: Mildly elevated LFTs on last blood work plan to repeat and consider further wor kup if they should remain elevated. (9) Obesity (BMI 30-39.9): Code(s): E66.9 - Obesity, unspecified Category: Medical Plan: Healthy diet and regular exercise is encouraged. Plan Continuation of current treatment for gastritis and laryngopharyngeal reflux with pantoprazole 40 mg is advised, while monitoring symptom relief. The Wellbutrin regimen remains at three times daily, with an assessment scheduled in one month. Emphasis was placed on continuing counseling sessions weekly to address personal and marital stresses. Adjustments to Vitamin D levels through supplementation and dietary changes were advised, with monitoring of liver function planned due to previous elevation. The patient is advised against concurrent use of pantoprazole with cefuroxime. This note was constructed using voice recognition software. While every effort has been made to ensure accuracy and tick inspector, still areas may have been included sometimes these areas may affect the content or meeting of the given symptoms. Total time spent caring for the patient today was 45 minutes. This includes time spent before the visit reviewing the chart, time spent during the visit, and time spent after the visit and documentation. Patient was informed and verbally consented to the use of an ambient scribe for clinic note documentation during this visit. Medications: New pantoprazole 40 mg PO DAILY 90 tabs 0RF Changed From bupropion HCl 100 mg PO BID 60 tabs 2RF To bupropion HCl 100 mg PO TID 30 days 90 tabs 2RF Discontinued ibuprofen Discontinued Reason: Patient no longer taking 600 mg PO Q8H PRN 20 tabs 0RF pain pantoprazole Discontinued Reason: Patient no longer taking 20 mg PO DAILY 90 tabs 0RF
[2024-11-02 15:20] VITALS: BP 118/70; PULSE 65; O2SAT 98; BMI 39.7
--- OUTSIDE RECORDS SUMMARY | 2024-11-02 15:30 | XMS_ITS | Clinical Summary ---
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 4 Active norethindrone (ANA,Darshan ESQUIVEL,MICRONOR ) 0.35 mg tablet Take 1 tablet (0.35 mg total) by mouth 1 (one) time each day. 28 tablet 3 5 Active Active Problems Problem Noted Date Diagnosed Date [...] 6mo and older 03/12/2023,05/09/2019,03/09/2018 PPD Test 06/29/2019,05/09/2019 [employer] SARS-CoV-2 COVID-19, mRNA, LNP-S, preservative free 08/28/2020 [...] EDT Office Visit Obstetrics and Gynecology - [place] [place] [address] Rolly Grijalva, [facility] [address] [place] [id number] Health Maintenance Due Date Last Done Comments [...] 07/04/1999 Hepatitis A Vaccines Completed 02/21/2016, 12/01/19 Meningococcal ACWY Vaccine Completed 02/21/2016, HPV Vaccines [...] RESULTING AGENCY - 10/02/2023 6:21 AM EDT [id number] THINPREP PAP, IMAGED: NEGATIVE FOR SQUAMOUS INTRAEPITHELIAL LESION AND MALIGNANCY MAGDALENO COBB , LETICIA(ASCP) (CASE ELECTRONICALLY SIGNED 10 01 2023) ADEQUACY: SATISFACTORY ENDOCERVICAL/TRANSFORMATION ZONE COMPONENT ABSENT. SOURCE: THINPREP PAP HPV IF ASCUS, CERVICAL, IMAGED CLINICAL INFORMATION: HPV IF DIAGNOSIS OF ASCUS. POST , PAP HX NEGATIVE IN 2020, LMP 11/17/22, [Z12.4] Result [facility] Rolly Grijalva [facility] LAB CYTOLOGY ORDERABLES Final Result HISTORICAL TESTING LAB RESULTING AGENCY * Gonorrhea/Chlamydia Screening (02/11/2023) Gonorrhea/Chla mydia Screening abstracted Result [facility] Provider MD HEALTH MAINTENANCE Final Result * HIV Screening (02/03/2023) Pathologist [facility] [place] HIV Screening abstracted Result [facility] Provider HEALTH MAINTENANCE Final Result * Hepatitis C Screening (02/03/2023) Pathologist [facility] Hepatitis C Screening abstracted Result [facility] Provider HEALTH MAINTENANCE Final Result * Depression Screening (02/03/2022) Pathologist [facility] Depression Screening abstracted Result [facility] Provider HEALTH MAINTENANCE Final Result * (ABNORMAL) Lipid panel (06/19/2021) Pathologist [facility] LDL/HDL Ratio 4 0 - 4 Triglycerides 108 0 - 150 mg/dL Cholesterol 154 0 - 200 mg/dL HDL 39(A) >=40 mg/dL LDL Cholesterol 94 0 - 100 mg/dL Blood Venous blood specimen / Unknown Result [facility] Historical Provider LAB BLOOD ORDERABLES Nicolle l Result from Last 3 Months or Most Recently Relevant to Health Maintenance Insurance [place]ICA[place] - [place] [facility] Care Teams Apprentice Painter Neckties Relationship Specialty Start Date End Date Martina Lou PA [address] [facility] [address] [place] [address] PCP - General Internal Medicine 05/15/21
== END 2024-11-02 16:24 | disposition home or self-care (01) ==
LOC: HO.HMCH 15:19
DX: Z00.00 Encounter for general adult medical examination without abnormal findings (principal); K21.9 Gastro-esophageal reflux disease without esophagitis; E66.9 Obesity, unspecified; Z68.35 Body mass index [BMI] 35.0-35.9, adult; G47.00 Insomnia, unspecified; G43.909 Migraine, unspecified, not intractable, without status migrainosus; F32.A Depression, unspecified; F41.9 Anxiety disorder, unspecified; J45.909 Unspecified asthma, uncomplicated; R79.89 Other specified abnormal findings of blood chemistry

== ENCOUNTER 2024-12-29 15:29 | Outpatient (AMB) | payer OTHER, SELFPAY ==
[2024-12-29 15:28] VITALS: BP 116/80; PULSE 71; O2SAT 100; BMI 41.9
--- NOTE | 2024-12-29 15:28 | MHC.PC.OV ---
Vital Signs 12/29/24 15:28 Height 5 ft Weight 214 lb 6 oz BMI 41.9 BP 116/80 Blood Pressure Location Lt brachial Position Sitting Pulse 71 Pulse Source Pulse Oximeter Temp Source Temporal Artery Scan Pulse Oximetry (%) 100 Oxygen Delivery Method Room Air Intake Visit Reasons: 1mth f/u Ecological Risk Assessor Required: No Accompanied by: Self / Same As Patient Allergies No Known Allergies (No Known Allergies*) Allergy (Verified 12/29/24 15:29) Medication List - Last Reconciled 12/29/24 by Dora Avila PA-C albuterol sulfate 90 mcg/actuation 1 inh inhalation QID bupropion HCl 100 mg PO TID 30 days fluticasone propion-salmeterol 100-50 mcg/dose (Advair Diskus) 1 inh inhalation BID fluticasone propionate 50 mcg/actuation (Flonase Allergy Relief) 1 spray intranasal BID norethindrone (contraceptive) 0.35 mg PO DAILY ondansetron 4 mg PO Q8H pantoprazole 40 mg PO DAILY rizatriptan take 1 tablet at onset of headache; if no relief, may repeat 1 tablet after at least 2 hrs PO tirzepatide (weight loss) (Zepbound) 2.5 mg (0.5 mL) subcut QWEEK venlafaxine 37.5 mg PO DAILY Tobacco use date assessed: 12/29/24 Dental Screening Dental Screen Date: 12/29/24 Did you have a dental visit in the last 12 months?: Yes Did you have a dental problem in the last 6 months where you did not have access to dental care?: No Was dental information given to patient?: Patient has dentist HPI 1mth f/u HPI Details 24-year-old female with past medical history of GERD, asthma, anxiety, depression, migraine and insomnia last seen 10/2024 coming in for follow up. phentermine trialed in 2021 which was failed and caused significant constipation - exercising in the house - Presenting with management of asthma, depression, anxiety, allergic rhinitis, gastroesophageal reflux disease, migraine, and obesity. Asthma Currently managed with Advair and albuterol as needed, with effective symptom control. Her migraines are currently not well managed as she had side effects to the venlafaxine and Rizatriptan, similar medications cause adverse effects; no recent migraines reported. [facility] Medical History Asthma Surgical History History of 2 sections Family History Mother No problems noted. Father No problems noted. Daughter No problems noted. Son No problems noted. Sister No problems noted. Sister No problems noted. Sister No problems noted. 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 Nick Murrell, Jerica Barroso, Jacinto Olson and colleagues, with an educational aide from [employer]. Review of Systems Const Denies body aches, Denies chills, Denies fever(s), Denies headache(s) and Denies poor appetite Eyes Reports no additional complaints ENT Denies dizziness and Denies headache(s) Card Denies chest pain, Denies syncope, Denies edema, Denies irregular heart rhythm, Denies lightheadedness and Denies dyspnea Resp Denies cough and Denies dyspnea GI Denies diarrhea, Reports nausea and Reports vomiting Musc Reports no additional complaints and Denies abnormal gait Skin/Breast Reports system reviewed and no additional complaints, except as documented Neuro Denies abnormal gait, Denies dizziness, Denies syncope and Denies headache(s) Psych Reports no additional complaints Physical exam (Primary Care) Vital Signs: Last Vital Signs Pulse 71 12/29/24 15:28 BP 116/80 12/29/24 15:28 Pulse Ox 100 12/29/24 15:28 Oxygen Delivery Method Room Air 12/29/24 15:28 BMI result Body Mass Index 48.0 Tobacco/Smoking Status: Tobacco use Status Tobacco use date assessed 12/29/24 12/29/24 15:30 Patient Tobacco Use Status Never used Tobacco 12/29/24 15:30 Tobacco use type Cigarette 12/29/24 15:30 e-Cigarette/Vaping Use Never Used 12/29/24 15:30 Thrive Assessment: Date of Thrive Assessment Date Thrive assessed 12/29/24 12/29/24 15:30 Const General: cooperative, healthy appearing, comfortable and no acute distress Orientation/consciousness: patient oriented x3 HENMT Head: Yes normocephalic Ears: hearing grossly normal bilaterally General nose exam: Normal external nose present Eyes General: appearance normal, both eyes and all related structures Conjunctivae: conjunctivae normal Neck Neck: Yes full ROM and Yes no lymphadenopathy Resp Effort & Inspection: normal respiratory effort Cardio Rate: regular rate Skin General skin exam: no rashes or lesions noted Neuro General: patient oriented x3 Gait exam (Neuro): Normal gait present Extrem General: Yes normal to inspection, Yes full ROM and No edema Psych Affect: normal affect Attitude: cooperative Insight: Good insight present (Psych) Judgement: Good judgement present (Psych) Coding Level of Care Code Est Pt Level 3 (63629) Diagnoses Anxiety F41.9 Depression F32.A Obesity (BMI 30-39.9) E66.9 GERD (gastroesophageal reflux disease) K21.9 Migraine G43.909 Asthma J45.909 Assessment & Plan Assessment & Plan (1) Anxiety: Code(s): F41.9 - Anxiety disorder, unspecified Category: Medical Plan: Anxiety and depression is currently well managed with Wellbutrin t.i.d. (2) Depression: Code(s): F32.A - Depression, unspecified Category: Medical Plan: See above (3) Obesity (BMI 30-39.9): Code(s): E66.9 - Obesity, unspecified Category: Medical Plan: Healthy diet and regular exercise is encouraged. Plan to trial Zepbound for weight loss. Patient has tried and failed a course of phentermine. The medication gave her side effects such as constipation, nausea and vomiting she did not see significant weight loss in his medication. She has been exercising 3-4 times per week and is only seen minimal weight loss and would benefit from the addition of a GLP 1 injection. She is currently working on diet modification in his cut out carbohydrates is monitoring her caloric intake daily. I do believe she would be a good candidate for GLP 1 and plan to trial Zepbound at this time. (4) GERD (gastroesophageal reflux disease): Code(s): K21.9 - Gastro-esophageal reflux disease without esophagitis Category: Medical Plan: Avoid trigger foods such as citrus, tomato products, soda, caffeine, spicy foods and other foods that may be irritating to your stomach. Avoid laying flat 3-4 hours after eating and elevate the head of the bed 30 degrees to prevent acid from moving into the esophagus. Continue on pantoprazole (5) Migraine: Code(s): G43.909 - Migraine, unspecified, not intractable, without status migrainosus Category: Medical Plan: Patient has tried venlafaxine, amitriptyline, rizatriptan and sumatriptan for migraine management without good benefit. She is not a candidate for beta-nataliia due to the asthma history. She would like to try topiramate at this time. I did discuss side effects including decreased efficacy of her control pill patient is aware and plan to follow up in 1 month. (6) Asthma: Code(s): J45.909 - Unspecified asthma, uncomplicated Category: Medical Plan: Asthma currently controlled on present medications. Continue on inhaler. Avoid triggers such as allergies. Plan The patient will continue using Advair and albuterol for asthma management, as these medications are effectively controlling her symptoms. Wellbutrin will be maintained at 100 mg three times daily for depression and anxiety, given its effectiveness. Flonase and Claritin have been discontinued due to improved allergic rhinitis symptoms. Pantoprazole will be continued for GERD, with noted symptom improvement. For migraine management, the patient will avoid rizatriptan and similar medications due to adverse effects, and will consider Topamax for both migraine and weight management. Weight management strategies include considering Topamax, with attention to its potential impact on appetite and weight loss. This note was constructed using voice recognition software. While every effort has been made to ensure accuracy and class 1 owner operator, still areas may have been included sometimes these areas may affect the content or meeting of the given symptoms. Total time spent caring for the patient today was 20 minutes. This includes time spent before the visit reviewing the chart, time spent during the visit, and time spent after the visit and documentation. Patient was informed and verbally consented to the use of an ambient scribe for clinic note documentation during this visit. Medications: Discontinued venlafaxine Discontinued Reason: Patient no longer taking 37.5 mg PO DAILY 30 tabs 0RF
--- OUTSIDE RECORDS SUMMARY | 2024-12-29 15:35 | XMS_ITS | Clinical Summary ---
Author Organization 175 [facility] Address [address] [place] [address] Phone Care Team Providers Care Terminal Make Up Operator Name Role Phone Martina Lou Primary [...] 6mo and older 03/12/2023,05/09/2019,03/09/2018 PPD Test 06/29/2019,05/09/2019 [employer] SARS-CoV-2 COVID-19, mRNA, LNP-S, preservative free 08/28/2020 [...] 1 Paternal Aunt 2 Paterna Alive Daughter [place] Alive Father Alive Maternal Grandfather Maternal Grandmother [...] 68 06/12/2024 2:08 PM EST Temperature 36.1 C (97 F) 06/12/2024 2:08 PM EST Respiratory Rate - - Oxygen Saturation 98% 06/12/2024 2:08 PM EST Inhaled Oxygen Concentration - - Weight 110 kg (243 lb 6.4 oz) 09/28/2023 12:58 P M EDT Height 152.4 cm (5') 09/28/2023 12:58 PM EDT Body Mass Index 47.54 09/28/2023 12:58 PM EDT Plan of Treatment Health Maintenance Due Date Last Done Comments Pneumococcal Vaccine: Pediatrics (0 to 5 Years) and At-Risk Patients (6 to 49 Years) (1 of 1 - PPSV23) 2004 03/03/2000, 01/02/2000 Social Influencers of Health Screening 05/08/2022 COVID-19 Vaccine ( season) 2024 10/19/2020, 09/28/2020, 08/28/2020 Depression Screening 06/01/2024 02/03/2022 Influenza Vaccine (#1) 2025 , 05/09/2019, 03/09/2018, Additional history exists Cholesterol [...] RESULTING AGENCY - 10/02/2023 6:21 AM EDT [id number] THINPREP PAP, IMAGED: NEGATIVE FOR SQUAMOUS INTRAEPITHELIAL LESION AND MALIGNANCY LETICIA PRABHAKAR(ASCP) (CASE ELECTRONICALLY SIGNED 10 01 2023) ADEQUACY: SATISFACTORY ENDOCERVICAL/TRANSFORMATION ZONE COMPONENT ABSENT. SOURCE: THINPREP PAP HPV IF ASCUS, CERVICAL, IMAGED CLINICAL INFORMATION: HPV IF DIAGNOSIS OF ASCUS. POST , PAP HX NEGATIVE IN 2020, LMP 11/17/22, [Z12.4] us Rolly Grijalva CNM LAB CYTOLOGY ORDERABLES Final Result HISTORICAL TESTING LAB RESULTING AGENCY * Gonorrhea/Chlamydia Screening (02/11/2023) Gonorrhea/Chla mydia Screening abstracted Historical Provider MD HEALTH MAINTENANCE Final Result * HIV Screening (02/03/2023) Pathologist [facility] HIV Screening abstracted Historical Provider MD HEALTH MAINTENANCE Final Result * Hepatitis C Screening (02/03/2023) Pathologist [facility] Hepatitis C Screening abstracted Historical Provider MD HEALTH MAINTENANCE Final Result * Depression Screening (02/03/2022) Pathologist [facility] Depression Screening abstracted Historical Provider HEALTH MAINTENANCE Final Result * (ABNORMAL) Lipid panel (06/19/2021) Pathologist [facility] LDL/HDL Ratio 4 0 - 4 Triglycerides 108 0 - 150 mg/dL Cholesterol 154 0 - 200 mg/dL HDL 39(A) >=40 mg/dL LDL Cholesterol 94 0 - 100 mg/dL Blood Venous blood specimen / Unknown Result [facility] Historical Provider LAB BLOOD ORDERABLES Nicolle l Result from Last 3 Months or Most Recently Relevant to Health Maintenance Insurance [place] [employer] [facility] Care Teams Terminal Make Up Operator Relationship Specialty Start Date End Date Martina Lou PA [address] [address] PCP - General Internal Medicine 05/15/21
--- OUTSIDE RECORDS SUMMARY | 2024-12-29 15:35 | XMS_ITS ---
Author Name [facility] Organization Unknown Care Team Organization Name Specialty Phone Email Start Date End Da te [facility]rade [facility] 04/08/202212/30
== END 2024-12-29 16:43 | disposition home or self-care (01) ==
LOC: HO.HMCH 15:29
DX: K21.9 Gastro-esophageal reflux disease without esophagitis (principal); E66.9 Obesity, unspecified; Z68.41 Body mass index [BMI] 40.0-44.9, adult; F41.9 Anxiety disorder, unspecified; F32.A Depression, unspecified; G43.909 Migraine, unspecified, not intractable, without status migrainosus; J45.909 Unspecified asthma, uncomplicated

== ENCOUNTER 2025-01-19 15:12 | Outpatient (REF) | payer OTHER, SELFPAY ==
--- OUTSIDE RECORDS SUMMARY | 2025-01-19 15:14 | XMS_ITS | Clinical Summary ---
Author Organization 175 [facility] Address [address] [place] [address] Phone Care Team Providers Care Vice President Biostatistics Name Role Phone Martina Lou Primary Care [...] 6mo and older 03/12/2023,05/09/2019,03/09/2018 PPD Test 06/29/2019,05/09/2019 [employer] SARS-CoV-2 COVID-19, mRNA, LNP-S, preservative free 08/28/2020 [...] 1 Paternal Aunt 2 Paterna Alive Daughter [place] Alive Father Alive Maternal Grandfather Maternal Grandmother [...] RESULTING AGENCY - 10/02/2023 6:21 AM EDT [id number] THINPREP PAP, IMAGED: NEGATIVE FOR SQUAMOUS INTRAEPITHELIAL [...] Final Result * HIV Screening (02/03/2023) Pathologist [facility] HIV Screening abstracted Historical Provider MD HEALTH MAINTENANCE Final Result * Hepatitis C Screening (02/03/2023) Pathologist [facility] Hepatitis C Screening abstracted Historical Provider MD HEALTH MAINTENANCE Final Result * Depression Screening (02/03/2022) Pathologist [facility] Depression Screening abstracted Historical Provider HEALTH MAINTENANCE Final Result * (ABNORMAL) Lipid panel (06/19/2021) Pathologist [facility] LDL/HDL Ratio 4 0 - 4 Triglycerides 108 0 - 150 mg/dL Cholesterol 154 0 - 200 mg/dL HDL 39(A) >=40 mg/dL LDL Cholesterol 94 0 - 100 mg/dL Blood Venous blood specimen / Unknown Result [facility] Historical Provider LAB BLOOD ORDERABLES Nicolle l Result from Last 3 Months or Most Recently Relevant to Health Maintenance [place] [employer] [facility] Care Teams Vice President Biostatistics Relationship Specialty Start Date End Date Martina Lou PA [address] [address] PCP - General Internal Medicine 05/15/21
[2025-01-19 17:17] LABS: UPreg QC Valid YES
== END 2025-01-19 15:13 | disposition home or self-care (01) ==
LOC: HO.LAB 15:12
DX: N93.9 Abnormal uterine and vaginal bleeding, unspecified (principal)
CPT/HCPCS: 36415; 81025; 84702

== ENCOUNTER 2025-03-18 09:49 | Emergency (ER) | payer SELFPAY ==
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
[2025-03-18 09:55] VITALS: BP 109/61; PULSE 68; RESP 18; TEMP 36.8; O2SAT 98; BMI 36.0
[2025-03-18 10:07] VITALS: BP 109/61; PULSE 68; RESP 18; TEMP 36.8; O2SAT 98
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
== END 2025-03-18 13:44 | disposition home or self-care (01) ==
PROVIDERS: Emergency Provider Emergency Medicine
DX: S39.012A Strain of muscle, fascia and tendon of lower back, initial encounter (principal); V49.49XA Driver injured in collision with other motor vehicles in traffic accident, initial encounter; Y93.9 Activity, unspecified; Y92.410 Unspecified street and highway as the place of occurrence of the external cause
CPT/HCPCS: 72100; 99283; 99284

== ENCOUNTER → 2025-03-18 10:42 | Outpatient (BNV) | payer OTHER, SELFPAY | PROVIDERS: Emergency Provider Emergency Medicine; Visit Provider Radiology Diagnostic Radiology | DX: M51.360 Other intervertebral disc degeneration, lumbar region with discogenic back pain only (principal) | CPT/HCPCS: 72100 ==

== ENCOUNTER 2025-04-22 09:40 | Outpatient (REF) | payer OTHER, SELFPAY ==
--- OUTSIDE RECORDS SUMMARY | 2025-04-22 09:42 | XMS_ITS | Clinical Summary ---
Author Organization [address] [facility] Address [address] [place] [address] Phone Care Team Providers Care Neurosurgeon Name Role Phone Martina Lou Primary Care [...] 6mo and older 03/12/2023,05/09/2019,03/09/2018 PPD Test 06/29/2019,05/09/2019 [email or web address] SARS-CoV-2 COVID-19, mRNA, LNP-S, preservative free 08/28/2020 [...] RESULTING AGENCY - 10/02/2023 6:21 AM EDT [id number] THINPREP PAP, IMAGED: NEGATIVE FOR SQUAMOUS INTRAEPITHELIAL [...] RESULTING AGENCY * Gonorrhea/Chlamydia Screening (02/11/2023) Pathologist [facility] Gonorrhea/Chla mydia Screening abstracted Historical Provider HEALTH MAINTENANCE Final Result * HIV Screening (02/03/2023) Pathologist [facility] [place] HIV Screening abstracted Historical Provider HEALTH MAINTENANCE Final Result * Hepatitis C Screening (02/03/2023) Pathologist [facility] Hepatitis C Screening abstracted Historical Provider HEALTH MAINTENANCE Final Result * Depression Screening (02/03/2022) Pathologist [facility] Depression Screening abstracted Historical Provider HEALTH MAINTENANCE Final Result * (ABNORMAL) Lipid panel (06/19/2021) Pathologist [facility] LDL/HDL Ratio 4 0 - 4 Triglycerides 108 0 - 150 mg/dL Cholesterol 154 0 - 200 mg/dL HDL 39(A) >=40 mg/dL LDL Cholesterol 94 0 - 100 mg/dL Blood Venous blood specimen / Unknown Result [facility] Historical Provider LAB BLOOD ORDERABLES Nicolle l Result from Last 3 Months or Most Recently Relevant to Health Maintenance Insurance [place] - [place] [facility] Care Teams Neurosurgeon Relationship Specialty Start Date End Date Martina Lou PA [address] [address] PCP - General Internal Medicine 05/15/21
[2025-04-22 10:51] LABS: Resp Syncy Virus RNA Qual PCR NEGATIVE (Negative); SARS COV2 PCR INHOUSE NEGATIVE (Negative)
== END 2025-04-22 09:41 | disposition home or self-care (01) ==
LOC: HO.LAB 09:40
DX: R09.89 Other specified symptoms and signs involving the circulatory and respiratory systems (principal); Z03.818 Encounter for observation for suspected exposure to other biological agents ruled out
CPT/HCPCS: 87637